=== PATIENT | female | born 1935 | race Caucasian/White ===

== ENCOUNTER → 2020-03-02 08:31 | Outpatient (BNVA) | payer MEDICARE, OTHER, SELFPAY | PROVIDERS: PCP Internal Medicine; Visit Provider Physician Assistant | DX: M17.11 Unilateral primary osteoarthritis, right knee (principal) | CPT/HCPCS: 20610; 99212; J1040 ==

== ENCOUNTER → 2020-09-22 09:09 | Outpatient (BNVA) | payer MEDICARE, OTHER, SELFPAY | PROVIDERS: PCP Internal Medicine; Visit Provider Physician Assistant | DX: M17.2 Bilateral post-traumatic osteoarthritis of knee (principal) | CPT/HCPCS: 20610; 99212; J1040 ==

== ENCOUNTER 2020-09-23 09:02 | Inpatient (IN) | payer MEDICARE, OTHER, SELFPAY ==
[2020-09-23] VITALS (9 sets, daily range): BP systolic 100–148; BP diastolic 48–83; PULSE 54–80; RESP 16–19; TEMP 36.3–36.6; O2SAT 92–96; BMI 26.1
--- NOTE | ~2020-09-23 | XR_ITS ---
EXAMINATION: AP PELVIS AND BILATERAL HIPS. BILATERAL KNEES. CLINICAL INFORMATION: Status post fall with pain COMPARISON: Right hip 04/17/2019 and left knee 03/17/2019. TECHNIQUE: AP pelvis and bilateral hips 5 views. 4 views each hip. FINDINGS: AP pelvis: There is a total right knee prosthesis in satisfactory alignment. The left hip joint space is maintained normal. Is mild loss of right SI joint space. Left facet joint space is normal. No visible fracture or lytic process seen. There is significant symphysis sclerosis. The soft tissues are normal. Right hip: There is a total right hip prosthesis with prosthetic components in satisfactory alignment. There is no loosening seen. No fracture noted. The soft tissues are normal. Left hip: There is loss of left hip joint space without visible acute fracture, dislocation or lytic process. The soft tissues are normal. Right knee: There is severe loss of medial and patellofemoral and moderate lateral compartment joint space with a large superior patellar osteophyte eroding the anterior femoral cortical margin.. There is large soft tissue calcification lateral distal right femur. There is moderate osteophytosis throughout the compartments. Nose loose body seen. No abnormal joint effusion suspected. Left knee: There is severe loss of medial and patellofemoral and moderate lateral compartment joint space. There is moderate suprapatellar enthesophytosis. There are dual large soft tissue calcification superior and lateral to the patella and large enthesophyte of the superior patella eroding anterior distal femoral cortex. There are no loose bodies or joint effusion seen. XR/XR hips KANDY min 3V IMPRESSION: Tricompartment arthritic changes both knees worse in the medial and the peripheral compartment. There are large enthesophytes along the superior patella eroding the anterior distal femoral cortical margin. There is no suprapatellar joint effusion, acute fracture or dislocation. There is soft tissue amorphous calcification superior and lateral to the patella in both knees There is a total right hip prosthesis in satisfactory alignment. Mild right sacroiliitis is noted. The left SI joint left hip joint is normal. Also visualized is mild pubic symphysitis. No acute fracture or dislocation seen involving either hip joint.
--- NOTE | ~2020-09-23 | CT_ITS ---
EXAMINATION: CT BRAIN AND CT CERVICAL SPINE WITHOUT CONTRAST. CLINICAL INFORMATION: Dizziness and fall. COMPARISON: None TECHNIQUE: 5 mm thin axial and reformatted 2 mm thin sagittal and coronal images of brain were obtained. Subsequently axial 3 mm thin and reformatted 2 mm thin sagittal and coronal images of cervical spine were obtained. DLP [id number] FINDINGS: Brain: There is no acute intra-axial, extra-axial bleed, masses or midline shift. There is no acute infarction in evolution. There is no edema. The lateral ventricles are symmetrical in size and configuration without enlargement. Small hypodense areas are seen in the subcortical white matter more prominent than the previous exam likely small old lacunar infarcts. The lateral ventricles are symmetrical but prominent and so other cortical sulci. Bone windows reveal no calvarial abnormality. No scalp soft tissue abnormality seen. Bilateral mastoid air cells and paranasal sinuses are well aerated. Cervical spine: There is maintained cervical lordosis. There is mild levoscoliosis. The vertebral heights and alignment is normal. There is mild loss of C3-C4, C5-C6 and C6-C7 disc heights with moderate posterior and mild ventral spondylosis. The craniovertebral junction and C1-C2 alignment is normal. There is moderate C2-C3, C3-C4, C4-C5 and C5-C6 facet joint arthropathy slightly greater on the right side. The airway is widely patent. The lung apices are clear. The thyroid lobes are symmetrical with bilateral thyroid nodules. The left thyroid nodule is larger with calcification. The prevertebral and paravertebral soft tissues are normal. CT/CT cervical spine wo con IMPRESSION: No acute intracranial process seen. Age-related cerebral atrophy with chronic small vessel microangiopathy. There is lacunar infarct in bilateral centrum semiovale. There is no acute fracture, dislocation or subluxation cervical spine. There are degenerative disc changes and facet joint arthropathy as described above.
--- NOTE | ~2020-09-23 | XR_ITS ---
EXAMINATION: XR CHEST CLINICAL INFORMATION: Dizziness, fall, trauma COMPARISON: Chest radiographs 03/17/2019, 01/31/2019 TECHNIQUE: 2 views of the chest were obtained. FINDINGS: There is no pneumothorax, pleural reaction, airspace consolidation, or effusion. The costophrenic sulci are well-defined. The heart is normal in size. The hilar and mediastinal contours are normal. No visible acute bony abnormality. Again, there are multilevel degenerative changes thoracic spine and bilateral shoulder arthropathy as before. XR/XR chest 2V IMPRESSION: No acute intrathoracic disease.
--- NOTE | 2020-09-23 09:13 | ECG_ITS ---
Test Reason : FALL Blood Pressure : / mmHG Vent. Rate : 080 BPM Atrial Rate : 080 BPM P-R Int : 230 ms QRS Dur : 108 ms QT Int : 410 ms P-R-T Axes : 046 033 038 degrees QTc Int : 472 ms Sinus rhythm with 1st degree A-V block with occasional Premature ventricular complexes Otherwise normal ECG When compared with ECG of 17-MAR-2019 18:54, Premature ventricular complexes are now Present [place] interval has increased T wave inversion no longer evident in Lateral leads Referred By: Hamida Villafuerte Electronically Signed By:DEJUAN MONTOYA
[2020-09-23 09:28] LABS: MANUAL DIFF FLAG NO
[2020-09-23 09:29] LABS: Basophils Percent Auto 0.1 % (0-2); Hematocrit 39.1 % (37-47); Hemoglobin 13.3 g/dl (12.0-16.0); Imm Gran Abs Auto 0.07 X10*3/uL (0.00-0.03); Imm Gran Pct Auto 0.7 % (0.0-0.4); Lymphocytes Percent Auto 10.4 % (20-40); Mean Corpuscular Hemoglobin 31.1 pg (27.0-33.0); Mean Corpuscular Volume 91.4 fL (80-98); Mean Platelet Volume 9.3 fL (9.4-12.3); Monocytes Absolute Auto 0.2 X10*3/uL (0.1-1.2); Monocytes Percent Auto 2.3 % (2-11); Neutrophils Absolute Auto 8.5 X10*3/uL (2.0-8.3); Neutrophils Percent Auto 86.5 % (45-73); Platelet Count 314 X10*3/uL (160-400); Red Blood Count 4.28 X10*6/uL (4.20-5.50); White Blood Count 9.9 X10*3/uL (4.8-10.8)
[2020-09-23 09:34] LABS: Prothrombin Time 11.5 SEC (10.8-13.0)
[2020-09-23] MEDS: Acetaminophen 325 MG TABLET 975 MG PO (09:41)
[2020-09-23] MEDS: 0.9 % Sodium Chloride 1,000 ML 999 ML IVCONT ×2 (09:42→10:52)
[2020-09-23 09:55] LABS: Alanine Aminotransferase 16 U/L (0-31); Albumin Level 4.5 g/dL (3.5-5.0); Alkaline Phosphatase 102 U/L (39-117); Anion Gap 18 (12-20); Aspartate Amino Transferase 17 U/L (5-31); Bilirubin Total 0.9 mg/dL (0.0-1.0); Blood Urea Nitrogen 37 mg/dL (9-16); Carbon Dioxide 32 mmol/L (22-29); Chloride 88 mmol/L (96-108); Creatinine Clr Calc Pharmacy 20.4; Estimated Glomerular Filt Rate 25; Glucose Random 174 mg/dL (60-115); Magnesium 2.5 mg/dL (1.6-2.6); Sodium 135 mmol/L (135-145); Total Protein 7.7 g/dL (6.5-8.0)
[2020-09-23 09:58] LABS: B Type Natriuretic Peptide 66 pg/mL (<100); Troponin-I High Sensitivity 12.1 ng/L (<3.5-17.0)
[2020-09-23 10:03] LABS: Potassium 2.7 mmol/L (3.3-5.1)
[2020-09-23 10:08] LABS: Influenza A PCR NEGATIVE (Negative); Influenza B PCR NEGATIVE (Negative); Resp Syncy Virus RNA Qual PCR NEGATIVE (Negative); SARS COV2 PCR INHOUSE NEGATIVE (Negative)
[2020-09-23 10:12] LABS: TSH reflex Free T4 0.37 uIU/mL (0.32-4.0)
[2020-09-23 10:16] LABS: Glucose Urine UA NEG (NEG); Leukocyte Esterase Urine 1+ (NEG); Nitrite Urine NEG (NEG); Specific Gravity - Urine <= 1.005 (1.005-1.025); UACC Culture Trigger YES; Urine Blood NEG (NEG); Urine Ketones NEG (NEG); Urine Protein NEG (NEG-TRACE)
[2020-09-23 10:17] LABS: Appearance Urine CLEAR; Color Urine YELLOW
[2020-09-23 10:30] LABS: Bacteria Urine 2+ /LPF; RBC Urine 0-2 /HPF (0); Squamous Epithelial Cell Urine 1+ /LPF
--- NOTE | 2020-09-23 11:46 | ED_ITS ---
HPI - Fall General Chief Complaint: Fall Stated Complaint: FALL Time Seen by Provider: 09/23/20 09:03 Source: patient, family and EMS Mode of arrival: EMS Limitations: other History of Present Illness HPI Narrative: 85-year-old female with a past medical history of dementia, hypertension, diastolic dysfunction, fluid retention, lymphedema of both lower extremity, asthma and osteoarthritis presenting to the ED via EMS after she fell out of her bed. She is a poor historian. Reports that she felt dizzy although is very vague if she felt dizzy before the fall although reports she was definitely dizzy after the fall. Reports she hit her head although did not lose consciousness. She was down for approximately 20-30 minutes due to her daughter's could not get her back up. Daughters report that she is at baseline for mentation although appears more generalized weak. No focal weakness. She is complaining of bilateral hip and bilateral knee pain. She denies any fevers, headaches, dizziness at this time, changes in vision, jaw pain, paresthesias, nausea/vomiting, chest pain, shortness of breath, dyspnea on exertion, orthopnea, palpitations, abdominal pain, diarrhea, constipation, dysuria, hematuria or any other symptoms complaints or concerns at this time. Related Data Home Medications Medication Instructions Recorded Confirmed furosemide 80 mg tablet 80 mg PO DAILY 03/02/20 09/23/20 donepezil 10 mg PO BEDTIME 09/23/20 09/23/20 levothyroxine 25 mcg PO DAILY@0600 09/23/20 09/23/20 melatonin 6 mg PO BEDTIME 09/23/20 09/23/20 memantine 5 mg PO BID 09/23/20 09/23/20 potassium chloride 20 meq PO BID 09/23/20 09/23/20 triamterene-hydrochlorothiazid 1.5 tab PO DAILY 09/23/20 09/23/20 vitamin [id number] acid 1 tab SUBLINGUAL 09/23/20 Allergies Allergy/AdvReac Type Severity Reaction Status Date / Time codeine [CODEINE] Allergy Unknown UNKNOWN Unverified 09/22/20 09:55 penicillin G Allergy Unknown unk Verified 09/22/20 09:55 Penicillins [PENICILLINS] Allergy Unknown UNKNOWN Unverified 09/22/20 09:55 Sulfa (Sulfonamide Allergy Unknown UNKNOWN Unverified 09/22/20 09:55 Antibiotics) [SULFA (SULFONAMIDE ANTIBIOTICS)] tetanus and diphtheria Allergy Unknown UNKNOWN Unverified 09/22/20 09:55 toxoids [TETANUS AND DIPHTHERIA TOXOIDS] Sulfa Allergy Unknown unk Uncoded 09/22/20 09:55 TETANUS Allergy Unknown unk Uncoded 09/22/20 09:55 Review of Systems Review of Systems: Constitutional : No changes in activity, No lethargy, No recent prior head injury, No agitation, No increased fussiness ENT/Mouth : No Ear Pain, No Nasal discharge/drainage Eyes: No Eye Pain, No Swelling, No Redness, No Foreign Body, No Vision Changes Cardiovascular : No Chest Pain, No SOB Respiratory : No Cough Gastrointestinal : No Nausea, No Vomiting, No abdominal Pain Genitourinary : No Dysuria, No Urinary Frequency, No Urinary Incontinence, No Urgency, No Flank Pain Musculoskeletal : Positive b/l hip and knee joint pain, No neck stiffness, No back pain/injury Skin : No lacerations Neuro : Positive head injury, Positive dizziness, Positive gen weakness, No Focal Weakness, No unsteady gait, No Paresthesias, No Loss of Consciousness, No altered mental status, No Headache Yes all other systems are reviewed and are negative [facility] Past Medical History Attestation statement: The following information was validated with the patient. Medical History Bilateral post-traumatic osteoarthritis of knee Cataract Fluid retention HTN (hypertension) Lymphedema of both lower extremities Surgical History History of bladder surgery History of hip surgery Status post ablation of incompetent vein using laser Family History Family History Other HTN (hypertension) Social History Social History Advance Directives: Yes Advance Directives Information Provided: Yes Advance Directives on File: No Current occupational status: retired Current occupation: Right Handed Physical Exam Vital Signs: Vital Signs: Last Vital Signs Temp 97.9 F 09/23/20 09:10 Pulse 69 09/23/20 15:03 Resp 18 09/23/20 15:03 BP 133/54 L 09/23/20 15:03 Pulse Ox 94 09/23/20 15:03 Body Mass Index 26.1 Vital signs have been reviewed as normal and appeared to be correct. Blood pressure normal. Heart rate normal. Respiration rate normal. Temperature normal. Oxygen saturation normal. Appearance: Alert. Oriented X3. No acute distress. Head: Normal external exam. Normocephalic. Atraumatic. Able to rotate head bilaterally. Eyes: PERRLA. EOMI. No nystagmus noted. Conjunctiva and sclera normal. Eyelids normal. Corneal reflex normal. ENT: EAC normal. TM's Normal. Hearing normal. Pharynx normal. Uvula midline. tongue midline. Moist mucous membranes. No trismus noted. No drooling noted. No muffled voice noted. No nystagmus noted. Neck: Normal inspection. Neck supple. FROM. No adenopathy. Trachea midline. Thyroid Normal. No meningeal signs. No neck mass noted. CVS: Normal heart rate and rhythm. Heart sound normal. No murmurs noted. Pulses normal throughout. Respiratory: No respiratory distress. Painless inspiration. Breath sounds normal. No wheezes/rales/rhonchi noted. Chest nontender. No accessory muscle usage noted or decreased air movement noted. Abdomen: Soft and nontender. Bowel sounds normal in all 4 quadrants. No distention noted. No organomegaly noted. No visible injury noted. Back: Full range of motion noted. No mid thoracic/lumbar tenderness. No step- offs or deformities noted. Patient is neuro intact bilateral distant all 4 extremities. No rashes/lesions/induration/fluctuance or signs of infection noted. Patient reflexes intact bilateral and distally in all 4 extremities. Skin: Skin warm and dry. Normal skin color. Normal skin turgor. No rashes/lesions/lacerations noted. Extremities: Patient mild tenderness to bilateral hip joints and knees although patient has full range of motion no obvious deformities and no laxity or signs of infection noted. No lower extremity edema. No calf tenderness is noted. Otherwise all other Extremities exhibit normal range of motion and nontender. Able to shrug shoulders bilaterally and keep up against resistance. Neuro: Oriented X 3. No motor deficit. No sensory deficit. Reflexes normal. M oving all extremities. No focal motor deficits. Cranial nerves II-XI intact bilaterally. Facial strength normal. Normal cognition. Speech normal. Gait normal. Strength 5/5 throughout. No pronator drift. No tremor noted. No fasciculations noted. No rigidity noted. Muscle tone normal throughout. No asterixis noted. Zeleum-pu-yctc test normal. Heel to valle test normal. Tandem gait normal. Does not sway with eyes open. Romberg test negative. Rapid alternating movement upper extremity normal. Rapid alternating movement lower extremity normal. Hand drop from overhead Misses face. NIHSS score 0. Course Course Course Narrative: 9:12am - 85-year-old female presenting to the ED via EMS after she fell out of her bed. She is a poor historian. Reports that she felt dizzy although is very vague if she felt dizzy before the fall although reports she was definitely dizzy after the fall. Reports she hit her head although did not lose consciousness. She was down for approximately 20-30 minutes due to her daughter's could not get her back up. Daughters report that she is at baseline for mentation although appears more generalized weak. No focal weakness. She is complaining of bilat eral hip and bilateral knee pain. - On exam patient is alert and oriented x3. Not in any acute distress. No focal neuro deficits are noted. Normal steady gait. NIH SS score is 0 at this time. Patient has non disabling symptoms therefore not a candidate for tPA. Lungs clear to auscultation. CV RRR. Abdomen is soft and nontender. Cervical spine nontender and full range of motion. Thoracic and lumbar spine nontender and full range of motion. Patient with tenderness to palpation to bilateral hips and knee joints although no obvious deformities or laxity or signs of infection noted. Patient has a normal steady gait. Plan: Labs, CT scan of brain/cervical spine, chest x-ray, hips and bilateral knee x-rays, EKG, COVID/RSV/flu swab, straight cath for UA and 975 mg of Tylenol for the patient's pain and re-evaluate. Reevaluation(s) Reevaluation #1: - CT scan of brain/cervical spine revealed chronic changes no a cute processes were noted. - chest x-ray within normal limits no acute processes are noted. - x-rays of bilateral hips and knees revealed chronic changes no acute processes are noted. - labs returned in patient with a potassium of 2.7. BUN and creatinine 37/1.92. Random glucose 174. Troponin elevated at 12.1. Otherwise all other labs are within normal limits. COVID/RSV/flu negative. UA with +1 leukocytes and 10-14 white blood cells this is a straight cath most likely patient has a UTI theref ore will be started on antibiotics. - therefore due to patient appears to have UTI and I am starting on antibiotics will obtain blood cultures and lactic acid although this is not sepsis - will also obtain a repeat troponin at 12:20 and repeat chemistry anticipate to admit for Fall with dizziness/hypokalemia/MEAGHAN/UTI. Patient and family at bedside understand agree with this plan. Time: 11:55 Reevaluation #2: - I discussed with Dr. Gold and he reported that Dr. Vicente and SAMIA Acosta will admit the patient. Time: 14:13 [facility] - Fall Medical Records Attestation: I reviewed the patient's medical records. Lab Data Attestation: I reviewed the patient's lab results. Result diagrams: 09/23/20 09:22 09/23/20 12:36 Labs: Lab Results 09/23/20 09/23/20 09/23/20 Range/Units 09:20 09:22 09:22 WBC 9.9 (4.8-10.8) X10*3/uL RBC 4.28 (4.20-5.50) X10*6/uL Hgb 13.3 (12.0-16.0) g/dl Hct 39.1 (37-47) % MCV 91.4 (80-98) fL MCH 31.1 (27.0-33.0) pg MCHC 34.0 (31.0-35.0) g/dl RDW 13.0 (11.0-16.0) % Plt Count 314 (160-400) X10*3/uL MPV 9.3 L (9.4-12.3) fL Immature Gran % (Auto) 0.7 H (0.0-0.4) % Neut % (Auto) 86.5 H (45-73) % Lymph % (Auto) 10.4 L (20-40) % [place] % (Auto) 2.3 (2-11) % Eos % (Auto) 0.0 (0-4) % Baso % (Auto) 0.1 (0-2) % Lymph # (Auto) 1.0 L (1.2-4.9) X10*3/uL [place] # (Auto) 0.2 (0.1-1.2) X10*3/uL Eos # (Auto) 0.0 (0.0-0.4) X10*3/uL Baso # (Auto) 0.0 (0.0-0.2) X10*3/uL Abs Immat Gran (auto) 0.07 H (0.00-0.03) X10*3/uL Absolute Neuts (auto) 8.5 H (2.0-8.3) X10*3/uL Absolute Nucleated RBC 0.000 (0.0-0.012) X10*3/uL Nucleated RBC % (auto) 0.0 (0.0-0.2) /100WBC PT 11.5 (10.8-13.0) SEC INR 1.0 (0.9-1.1) Sodium (135-145) mmol/L Potassium (3.3-5.1) mmol/L Chloride (96-108) mmol/L Carbon Dioxide (22-29) mmol/L Anion Gap (12-20) BUN (9-16) mg/dL Creatinine (0.5-1.4) mg/dL Estim Creat Clear Calc Estimated GFR Random Glucose (60-115) mg/dL Lactic Acid (0.5-2.0) mmol/L Calcium (8.4-10.2) mg/dL Magnesium (1.6-2.6) mg/dL Total Bilirubin (0.0-1.0) mg/dL AST (5-31) U/L ALT (0-31) U/L Alkaline Phosphatase (39-117) U/L Troponin I High Sens (<3.5-17.0) ng/L B-Natriuretic Peptide (<100) pg/mL Total Protein (6.5-8.0) g/dL Albumin (3.5-5.0) g/dL TSH (0.32-4.0) uIU/mL Urine Color Urine Appearance Urine pH (5.0-8.0) Ur Specific [place] (1.005-1.025) Urine Protein (NEG-TRACE) MG/DL Urine Glucose (UA) (NEG) MG/DL Urine Ketones (NEG) MG/DL Urine Blood (NEG) Urine Nitrite (NEG) Ur Leukocyte Esterase (NEG) Urine RBC (0) /HPF Urine WBC (0-4) /HPF Ur Squamous Epith Cells /LPF Urine Bacteria /LPF Coronavirus (PCR) NEGATIVE (Negative) Influenza Type A (PCR) NEGATIVE (Negative) Influenza Type B (PCR) NEGATIVE (Negative) RSV RNA Qual (PCR) NEGATIVE (Negative) 09/23/20 09/23/20 09/23/20 Range/Units 09:22 09:22 09:22 WBC (4.8-10.8) X10*3/uL RBC (4.20-5.50) X10*6/uL Hgb (12.0-16.0) g/dl Hct (37-47) % MCV (80-98) fL MCH (27.0-33.0) pg MCHC (31.0-35.0) g/dl RDW (11.0-16.0) % Plt Count (160-400) X10*3/uL MPV (9.4-12.3) fL Immature Gran % (Auto) (0.0-0.4) % Neut % (Auto) (45-73) % Lymph % (Auto) (20-40) % [place] % (Auto) (2-11) % Eos % (Auto) (0-4) % Baso % (Auto) (0-2) % Lymph # (Auto) (1.2-4.9) X10*3/uL [place] # (Auto) (0.1-1.2) X10*3/uL Eos # (Auto) (0.0-0.4) X10*3/uL Baso # (Auto) (0.0-0.2) X10*3/uL Abs Immat Gran (auto) (0.00-0.03) X10*3/uL Absolute Neuts (auto) (2.0-8.3) X10*3/uL Absolute Nucleated RBC (0.0-0.012) X10*3/uL Nucleated RBC % (auto) (0.0-0.2) /100WBC PT (10.8-13.0) SEC INR (0.9-1.1) Sodium 135 (135-145) mmol/L Potassium 2.7 L (3.3-5.1) mmol/L Chloride 88 L (96-108) mmol/L Carbon Dioxide 32 H (22-29) mmol/L Anion Gap 18 (12-20) BUN 37 H (9-16) mg/dL Creatinine 1.92 H (0.5-1.4) mg/dL Estim Creat Clear Calc 20.4 Estimated GFR 25 Random Glucose 174 H (60-115) mg/dL Lactic Acid (0.5-2.0) mmol/L Calcium 10.0 (8.4-10.2) mg/dL Magnesium 2.5 (1.6-2.6) mg/dL Total Bilirubin 0.9 (0.0-1.0) mg/dL AST 17 (5-31) U/L ALT 16 (0-31) U/L Alkaline Phosphatase 102 (39-117) U/L Troponin I High Sens 12.1 (<3.5-17.0) ng/L B-Natriuretic Peptide 66 (<100) pg/mL Total Protein 7.7 (6.5-8.0) g/dL Albumin 4.5 (3.5-5.0) g/dL TSH 0.37 (0.32-4.0) uIU/mL Urine Color Urine Appearance Urine pH (5.0-8.0) Ur Specific [place] (1.005-1.025) Urine Protein (NEG-TRACE) MG/DL Urine Glucose (UA) (NEG) MG/DL Urine Ketones (NEG) MG/DL Urine Blood (NEG) Urine Nitrite (NEG) Ur Leukocyte Esterase (NEG) Urine RBC (0) /HPF Urine WBC (0-4) /HPF Ur Squamous Epith Cells /LPF Urine Bacteria /LPF Coronavirus (PCR) (Negative) Influenza Type A (PCR) (Negative) Influenza Type B (PCR) (Negative) RSV RNA Qual (PCR) (Negative) 09/23/20 09/23/20 09/23/20 Range/Units 10:09 12:36 12:36 WBC (4.8-10.8) X10*3/uL RBC (4.20-5.50) X10*6/uL Hgb (12.0-16.0) g/dl Hct (37-47) % MCV (80-98) fL MCH (27.0-33.0) pg MCHC (31.0-35.0) g/dl RDW (11.0-16.0) % Plt Count (160-400) X10*3/uL MPV (9.4-12.3) fL Immature Gran % (Auto) (0.0-0.4) % Neut % (Auto) (45-73) % Lymph % (Auto) (20-40) % [place] % (Auto) (2-11) % Eos % (Auto) (0-4) % Baso % (Auto) (0-2) % Lymph # (Auto) (1.2-4.9) X10*3/uL [place] # (Auto) (0.1-1.2) X10*3/uL Eos # (Auto) (0.0-0.4) X10*3/uL Baso # (Auto) (0.0-0.2) X10*3/uL Abs Immat Gran (auto) (0.00-0.03) X10*3/uL Absolute Neuts (auto) (2.0-8.3) X10*3/uL Absolute Nucleated RBC (0.0-0.012) X10*3/uL Nucleated RBC % (auto) (0.0-0.2) /100WBC PT (10.8-13.0) SEC INR (0.9-1.1) Sodium 138 (135-145) mmol/L Potassium 2.7 L (3.3-5.1) mmol/L Chloride 97 (96-108) mmol/L Carbon Dioxide 30 H (22-29) mmol/L Anion Gap 14 (12-20) BUN 34 H (9-16) mg/dL Creatinine 1.50 H (0.5-1.4) mg/dL Estim Creat Clear Calc 26.1 Estimated GFR 33 Random Glucose 152 H (60-115) mg/dL Lactic Acid 1.3 (0.5-2.0) mmol/L Calcium 8.6 D (8.4-10.2) mg/dL Magnesium (1.6-2.6) mg/dL Total Bilirubin (0.0-1.0) mg/dL AST (5-31) U/L ALT (0-31) U/L Alkaline Phosphatase (39-117) U/L Troponin I High Sens (<3.5-17.0) ng/L B-Natriuretic Peptide (<100) pg/mL Total Protein (6.5-8.0) g/dL Albumin (3.5-5.0) g/dL TSH (0.32-4.0) uIU/mL Urine Color YELLOW Urine Appearance CLEAR Urine pH 6.0 (5.0-8.0) Ur Specific [place] <= 1.005 (1.005-1.025) Urine Protein NEG (NEG-TRACE) MG/DL Urine Glucose (UA) NEG (NEG) MG/DL Urine Ketones NEG (NEG) MG/DL Urine Blood NEG (NEG) Urine Nitrite NEG (NEG) Ur Leukocyte Esterase 1+ H (NEG) Urine RBC 0-2 (0) /HPF Urine WBC 10-14 H (0-4) /HPF Ur Squamous Epith Cells 1+ /LPF Urine Bacteria 2+ /LPF Coronavirus (PCR) (Negative) Influenza Type A (PCR) (Negative) Influenza Type B (PCR) (Negative) RSV RNA Qual (PCR) (Negative) 09/23/20 Range/Units 12:36 WBC (4.8-10.8) X10*3/uL RBC (4.20-5.50) X10*6/uL Hgb (12.0-16.0) g/dl Hct (37-47) % MCV (80-98) fL MCH (27.0-33.0) pg MCHC (31.0-35.0) g/dl RDW (11.0-16.0) % Plt Count (160-400) X10*3/uL MPV (9.4-12.3) fL Immature Gran % (Auto) (0.0-0.4) % Neut % (Auto) (45-73) % Lymph % (Auto) (20-40) % [place] % (Auto) (2-11) % Eos % (Auto) (0-4) % Baso % (Auto) (0-2) % Lymph # (Auto) (1.2-4.9) X10*3/uL [place] # (Auto) (0.1-1.2) X10*3/uL Eos # (Auto) (0.0-0.4) X10*3/uL Baso # (Auto) (0.0-0.2) X10*3/uL Abs Immat Gran (auto) (0.00-0.03) X10*3/uL Absolute Neuts (auto) (2.0-8.3) X10*3/uL Absolute Nucleated RBC (0.0-0.012) X10*3/uL Nucleated RBC % (auto) (0.0-0.2) /100WBC PT (10.8-13.0) SEC INR (0.9-1.1) Sodium (135-145) mmol/L Potassium (3.3-5.1) mmol/L Chloride (96-108) mmol/L Carbon Dioxide (22-29) mmol/L Anion Gap (12-20) BUN (9-16) mg/dL Creatinine (0.5-1.4) mg/dL Estim Creat Clear Calc Estimated GFR Random Glucose (60-115) mg/dL Lactic Acid (0.5-2.0) mmol/L Calcium (8.4-10.2) mg/dL Magnesium (1.6-2.6) mg/dL Total Bilirubin (0.0-1.0) mg/dL AST (5-31) U/L ALT (0-31) U/L Alkaline Phosphatase (39-117) U/L Troponin I High Sens 11.3 (<3.5-17.0) ng/L B-Natriuretic Peptide (<100) pg/mL Total Protein (6.5-8.0) g/dL Albumin (3.5-5.0) g/dL TSH (0.32-4.0) uIU/mL Urine Color Urine Appearance Urine pH (5.0-8.0) Ur Specific [place] (1.005-1.025) Urine Protein (NEG-TRACE) MG/DL Urine Glucose (UA) (NEG) MG/DL Urine Ketones (NEG) MG/DL Urine Blood (NEG) Urine Nitrite (NEG) Ur Leukocyte Esterase (NEG) Urine RBC (0) /HPF Urine WBC (0-4) /HPF Ur Squamous Epith Cells /LPF Urine Bacteria /LPF Coronavirus (PCR) (Negative) Influenza Type A (PCR) (Negative) Influenza Type B (PCR) (Negative) RSV RNA Qual (PCR) (Negative) ECG Data Attestation: I personally reviewed and interpreted this ECG as follows: ECG interpretation date: 09/23/20 ECG interpretation time: 09:23 Interpretation: Sinus rhythm with first-degree AV block were occasional premature ventricular complexes no acute ischemic changes are noted. Patient's EKG on 03/17/2019 she did not have first-degree AV block although no acute ischemic changes are noted today. Critical Care Time Critical Care Time Critical Care Time: Yes Total Critical Care Time: 60 Attestation: I personally attest to this time spent taking care of the patient Discharge Plan Discharge Clinical Impression: Fall, Dizziness, Acute hypokalemia, MEAGHAN (acute kidney injury), UTI (urinary tract infection) Patient Disposition: Admitted As Inpatient
--- NOTE | 2020-09-23 12:13 | HE.PHANOTE ---
MED REC COMPLETE, NO ISSUES
[2020-09-23 13:02] LABS: Lactic Acid 1.3 mmol/L (0.5-2.0)
[2020-09-23 13:08] LABS: Carbon Dioxide 30 mmol/L (22-29)
[2020-09-23 13:10] LABS: Anion Gap 14 (12-20); Blood Urea Nitrogen 34 mg/dL (9-16); Chloride 97 mmol/L (96-108); Creatinine Clr Calc Pharmacy 26.1; Estimated Glomerular Filt Rate 33; Glucose Random 152 mg/dL (60-115); Sodium 138 mmol/L (135-145)
[2020-09-23] MEDS: cefTRIAXone sodium 2 GM in 0.9 % Sodium Chloride 50 ML IV (13:10)
[2020-09-23 13:11] LABS: Troponin-I High Sensitivity 11.3 ng/L (<3.5-17.0)
[2020-09-23 13:17] LABS: Calcium 8.6 mg/dL (8.4-10.2); Potassium 2.7 mmol/L (3.3-5.1)
--- NOTE | 2020-09-23 15:01 | P.EN_ITS ---
Event Note Date of Service: 09/24/20 Event Note: Patient seen and examined-patient is having some dizziness and hav ing poor appetite from few days-found to have MEAGHAN, hypokalemia and question of UTI on admission. She said she fall in the sleep, and as soon as she fell she woke up. No syncope Lab imaging and EKG reviewed. Patient has hypokalemia, MEAGHAN. Physical exam: heent: neck pain butable to move , no vissible deformity Cvs: rrr, [id number] , no murmur res: clear to auscultation ,no rhonchii or wheezing abd: no rebound or guarding ,nt, bs present. ext pulses present , no cyanosis neuro: axo3 , nonfocal. Assessment and plan coodinated in apc's note in addition: Will start her on hydration, aggressive electrolyte replacement, admitted tele, add antibiotic until urine culture comes back preferably treat for UTI since has these issues on and off. Hold any nephrotoxic medications. If renal function worsens then we will add nephrology evaluation.
[2020-09-23] MEDS: Potassium Chloride Packet 20 MEQ PACKET 40 MEQ PO (15:05)
[2020-09-23] MEDS: Butalb/Acetamin/Caff 50/325/40 TABLET 2 TAB PO (15:05)
--- NOTE | 2020-09-23 15:06 | P.HPHOSP_ITS ---
History of Present Illness Date of Service: 09/23/20 Chief Complaint: Fall This is an 85-year-old female who presented to the emergency department after a fall. Patient states that she fell out of bed overnight. She hit her head during her fall. She currently reports pain in her head and neck. Workup including brain CT and cervical spine CT changes. Her workup was significant for MEAGHAN, was 1.92 which improved to 1.50 with hydration. Her potassium was low at 2.7 and she received both IV and p.o. supplementation. Her urinalysis was questionable for UTI and she was started on empiric antibiotics. She reports chronic issues with urinary frequency and urgency. She has history of bladder sling surgery. She denies any dysuria, hematuria or any change in her urinary habits. She denies abdominal pain or associated nausea, vomiting, diarrhea, fever, chills. Her daughter reports decrease in p.o. intake over the past couple of days. Review of Systems Review of Systems: Yes all other systems are reviewed and are negative Constitutional: Constitutional: Denies chills and Denies fever(s) Cardiovascular: Cardiovascular: Denies chest pain Respiratory: Respiratory: Denies cough Gastrointestinal: Gastrointestinal: Denies abdominal pain [facility] Medical History Bilateral post-traumatic osteoarthritis of knee Cataract Fluid retention HTN (hypertension) Lymphedema of both lower extremities Family History Other HTN (hypertension) Family history: reviewed and not pertinent Surgical History History of bladder surgery History of hip surgery Status post ablation of incompetent vein using laser Social History Advance Directives: Yes Advance Directives Information Provided: Yes Advance Directives on File: No Current occupational status: retired Current occupation: Right [employer]ed Meds Allergies Allergy/AdvReac Type Severity Reaction Status Date / Time codeine [CODEINE] Allergy Unknown UNKNOWN Unverified 09/22/20 09:55 penicillin G Allergy Unknown unk Verified 09/22/20 09:55 Penicillins [PENICILLINS] Allergy Unknown UNKNOWN Unverified 09/22/20 09:55 Sulfa (Sulfonamide Allergy Unknown UNKNOWN Unverified 09/22/20 09:55 Antibiotics) [SULFA (SULFONAMIDE ANTIBIOTICS)] tetanus and diphtheria Allergy Unknown UNKNOWN Unverified 09/22/20 09:55 toxoids [TETANUS AND DIPHTHERIA TOXOIDS] Sulfa Allergy Unknown unk Uncoded 09/22/20 09:55 TETANUS Allergy Unknown unk Uncoded 09/22/20 09:55 Active Medications: Current Medications Generic Name Dose Route Start Last Admin Trade Name Freq PRN Reason Stop Dose Admin Potassium Chloride/Sodium Chloride 20 meq in 1,000 mls @ 80 mls/hr 09/23/20 13:59 IVCONT 09/24/20 02:28 .[id number] Pharmacy Consult 1 each 09/23/20 11:51 Consult Rx Perform Med Rec MISCELLANE ONCE PRN Consult order Home Medications Medication Instructions Recorded Confirmed Last Taken Type furosemide 80 mg tablet 80 mg PO DAILY 03/02/20 09/23/20 09/22/20 History donepezil 10 mg PO BEDTIME 09/23/20 09/23/20 09/22/20 History levothyroxine 25 mcg PO DAILY@0600 09/23/20 09/23/20 09/22/20 History melatonin 6 mg PO BEDTIME 09/23/20 09/23/20 09/22/20 History memantine 5 mg PO BID 09/23/20 09/23/20 09/22/20 History potassium chloride 20 meq PO BID 09/23/20 09/23/20 09/22/20 History triamterene-hydrochlorothiazid 1.5 tab PO DAILY 09/23/20 09/23/20 09/22/20 History vitamin [id number] acid 1 tab SUBLINGUAL 09/23/20 09/22/20 History Physical Exam Vital Signs and Narrative: Vital Signs: Last Vital Signs Temp 97.9 F 09/23/20 09:10 Pulse 69 09/23/20 15:03 Resp 18 09/23/20 15:03 BP 133/54 L 09/23/20 15:03 Pulse Ox 94 09/23/20 15:03 Body Mass Index 26.1 Const: Nutritional Appearance: well nourished HENMT: Head: Yes normocephalic and Yes atraumatic Eyes: Sclerae: sclerae normal Chest: Chest palpation & inspection: normal inspection of the chest Resp: Effort & Inspection: normal respiratory effort and no respiratory distress Auscultation: clear to auscultation bilaterally Cardio: Rate: regular rate Rhythm: regular rhythm GI: Palpation (GI): Soft to palpation and nontender Neuro: Cranial nerves: Yes CN's II-XII intact bilaterally and Yes Bilaterally intact EOM present Extrem: Other: no leg edema Results Labs CBC and Chem 7: 09/23/20 09:22 09/23/20 12:36 Labs: Laboratory Results - last 24 hr 09/23/20 09/23/20 09/23/20 09:20 09:22 09:22 MCV 91.4 MCH 31.1 MCHC 34.0 RDW 13.0 Plt Count 314 MPV 9.3 L Immature Gran % (Auto) 0.7 H Neut % (Auto) 86.5 H Lymph % (Auto) 10.4 L [place] % (Auto) 2.3 Eos % (Auto) 0.0 Baso % (Auto) 0.1 Lymph # (Auto) 1.0 L [place] # (Auto) 0.2 Eos # (Auto) 0.0 Baso # (Auto) 0.0 Abs Immat Gran (auto) 0.07 H Absolute Neuts (auto) 8.5 H Absolute Nucleated RBC 0.000 Nucleated RBC % (auto) 0.0 PT 11.5 INR 1.0 Anion Gap Estim Creat Clear Calc Estimated GFR Random Glucose Lactic Acid Calcium Magnesium Total Bilirubin AST ALT Alkaline Phosphatase Troponin I High Sens B-Natriuretic Peptide Total Protein Albumin TSH Urine Color Urine Appearance Urine pH Ur Specific Freedom Urine Protein Urine Glucose (UA) Urine Ketones Urine Blood Urine Nitrite Ur Leukocyte Esterase Urine RBC Urine WBC Ur Squamous Epith Cells Urine Bacteria Coronavirus (PCR) NEGATIVE Influenza Type A (PCR) NEGATIVE Influenza Type B (PCR) NEGATIVE RSV RNA Qual (PCR) NEGATIVE 09/23/20 09/23/20 09/23/20 09:22 09:22 09:22 MCV MCH MCHC RDW Plt Count MPV Immature Gran % (Auto) Neut % (Auto) Lymph % (Auto) [place] % (Auto) Eos % (Auto) Baso % (Auto) Lymph # (Auto) [place] # (Auto) Eos # (Auto) Baso # (Auto) Abs Immat Gran (auto) Absolute Neuts (auto) Absolute Nucleated RBC Nucleated RBC % (auto) PT INR Anion Gap 18 Estim Creat Clear Calc 20.4 Estimated GFR 25 Random Glucose 174 H Lactic Acid Calcium 10.0 Magnesium 2.5 Total Bilirubin 0.9 AST 17 ALT 16 Alkaline Phosphatase 102 Troponin I High Sens 12.1 B-Natriuretic Peptide 66 Total Protein 7.7 Albumin 4.5 TSH 0.37 Urine Color Urine Appearance Urine pH Ur Specific Freedom Urine Protein Urine Glucose (UA) Urine Ketones Urine Blood Urine Nitrite Ur Leukocyte Esterase Urine RBC Urine WBC Ur Squamous Epith Cells Urine Bacteria Coronavirus (PCR) Influenza Type A (PCR) Influenza Type B (PCR) RSV RNA Qual (PCR) 09/23/20 09/23/20 09/23/20 10:09 12:36 12:36 MCV MCH MCHC RDW Plt Count MPV Immature Gran % (Auto) Neut % (Auto) Lymph % (Auto) [place] % (Auto) Eos % (Auto) Baso % (Auto) Lymph # (Auto) [place] # (Auto) Eos # (Auto) Baso # (Auto) Abs Immat Gran (auto) Absolute Neuts (auto) Absolute Nucleated RBC Nucleated RBC % (auto) PT INR Anion Gap 14 Estim Creat Clear Calc 26.1 Estimated GFR 33 Random Glucose 152 H Lactic Acid 1.3 Calcium 8.6 D Magnesium Total Bilirubin AST ALT Alkaline Phosphatase Troponin I High Sens B-Natriuretic Peptide Total Protein Albumin TSH Urine Color YELLOW Urine Appearance CLEAR Urine pH 6.0 Ur Specific Freedom <= 1.005 Urine Protein NEG Urine Glucose (UA) NEG Urine Ketones NEG Urine Blood NEG Urine Nitrite NEG Ur Leukocyte Esterase 1+ H Urine RBC 0-2 Urine WBC 10-14 H Ur Squamous Epith Cells 1+ Urine Bacteria 2+ Coronavirus (PCR) Influenza Type A (PCR) Influenza Type B (PCR) RSV RNA Qual (PCR) 09/23/20 12:36 MCV MCH MCHC RDW Plt Count MPV Immature Gran % (Auto) Neut % (Auto) Lymph % (Auto) [place] % (Auto) Eos % (Auto) Baso % (Auto) Lymph # (Auto) [place] # (Auto) Eos # (Auto) Baso # (Auto) Abs Immat Gran (auto) Absolute Neuts (auto) Absolute Nucleated RBC Nucleated RBC % (auto) PT INR Anion Gap Estim Creat Clear Calc Estimated GFR Random Glucose Lactic Acid Calcium Magnesium Total Bilirubin AST ALT Alkaline Phosphatase Troponin I High Sens 11.3 B-Natriuretic Peptide Total Protein Albumin TSH Urine Color Urine Appearance Urine pH Ur Specific Freedom Urine Protein Urine Glucose (UA) Urine Ketones Urine Blood Urine Nitrite Ur Leukocyte Esterase Urine RBC Urine WBC Ur Squamous Epith Cells Urine Bacteria Coronavirus (PCR) Influenza Type A (PCR) Influenza Type B (PCR) RSV RNA Qual (PCR) Imaging Radiologist's Impressions: Impressions Cervical Spine CT 09/23/20 09:13 IMPRESSION: No acute intracranial process seen. Age-related cerebral atrophy with chronic small vessel microangiopathy. There is lacunar infarct in bilateral centrum semiovale. There is no acute fracture, dislocation or subluxation cervical spine. There are degenerative disc changes and facet joint arthropathy as described above. Chest X-Ray 09/23/20 09:13 IMPRESSION: No acute intrathoracic disease. Head CT 09/23/20 09:13 IMPRESSION: No acute intracranial process seen. Age-related cerebral atrophy with chronic small vessel microangiopathy. There is lacunar infarct in bilateral centrum semiovale. There is no acute fracture, dislocation or subluxation cervical spine. There are degenerative disc changes and facet joint arthropathy as described above. Hip X-Ray 09/23/20 10:19 IMPRESSION: Tricompartment arthritic changes both knees worse in the medial and the peripheral compartment. There are large enthesophytes along the superior patella eroding the anterior distal femoral cortical margin. There is no suprapatellar joint effusion, acute fracture or dislocation. There is soft tissue amorphous calcification superior and lateral to the patella in both knees There is a total right hip prosthesis in satisfactory alignment. Mild right sacroiliitis is noted. The left SI joint left hip joint is normal. Also visualized is mild pubic symphysitis. No acute fracture or dislocation seen involving either hip joint. Knee X-Ray 09/23/20 10:19 IMPRESSION: Tricompartment arthritic changes both knees worse in the medial and the peripheral compartment. There are large enthesophytes along the superior patella eroding the anterior distal femoral cortical margin. There is no suprapatellar joint effusion, acute fracture or dislocation. There is soft tissue amorphous calcification superior and lateral to the patella in both knees There is a total right hip prosthesis in satisfactory alignment. Mild right sacroiliitis is noted. The left SI joint left hip joint is normal. Also visualized is mild pubic symphysitis. No acute fracture or dislocation seen involving either hip joint. Knee X-Ray 09/23/20 10:19 IMPRESSION: Tricompartment arthritic changes both knees worse in the medial and the peripheral compartment. There are large enthesophytes along the superior patella eroding the anterior distal femoral cortical margin. There is no suprapatellar joint effusion, acute fracture or dislocation. There is soft tissue amorphous calcification superior and lateral to the patella in both knees There is a total right hip prosthesis in satisfactory alignment. Mild right sacroiliitis is noted. The left SI joint left hip joint is normal. Also visualized is mild pubic symphysitis. No acute fracture or dislocation seen involving either hip joint. Assessment and Plan (1) MEAGHAN (acute kidney injury): Status: Acute (2) Acute hypokalemia: Status: Acute This is an 85-year-old female with a history of hypertension, dementia who presents the emergency department after falling at bed found to have UTI, hypokalemia, MEAGHAN MEAGHAN Initial creatinine 1.92, improved to 1.5 with hydration No recent baseline. Creatinine from March 2019 was 1.4 -follow renal function -continue gentle IV fluids -hold triamterene/hydrochlorothiazide Hypokalemia Likely due to diuretic use -tele monitoring -replace and follow Urinary tract infection Chronic urinary frequency and urgency -continue empiric ceftriaxone -follow-up urine culture Dementia -continue Namenda, Aricept Hypothyroidism -continue levothyroxine dvt ppx - heparin code status - full code HCP - daughter Jerri Attending - Dr. Vicente Quality Stroke Does the patient have a stroke diagnosis?: No VTE Prior VTE?: No VTE Risk Level:: Medical - moderate - high VTE Device Contraindication: Treatment Not Indicated VTE Drug Contraindication: N/A - Med Ordered
[2020-09-23] MEDS: Heparin Sodium,Porcine 5,000 UNIT/ML VIAL 5000 UNIT SUBCUT (15:55)
[2020-09-23] MEDS: Lidocaine 4 % Patch ADH..PATCH 1 PATCH TRANSDERMA (15:56)
[2020-09-23] MEDS: Lactated Ringers 1,000 ML 80 ML IVCONT (15:56)
[2020-09-23] MEDS: Donepezil HCl 10 MG TABLET PO (21:03)
[2020-09-23] MEDS: Memantine HCl 5 MG TABLET PO (21:03)
[2020-09-23] MEDS: Melatonin 3 MG TABLET 6 MG PO (21:03)
[2020-09-23] MEDS: 0.9 % Sodium Chloride Flush 3 ML SYRINGE IVFLUSH (21:05)
[2020-09-24] VITALS (10 sets, daily range): BP systolic 101–133; BP diastolic 46–61; PULSE 40–72; RESP 18–20; TEMP 36.4–36.8; O2SAT 92–94
[2020-09-24] MEDS: Lactated Ringers 1,000 ML 80 ML IVCONT ×2 (03:05→16:15)
[2020-09-24] MEDS: Heparin Sodium,Porcine 5,000 UNIT/ML VIAL 5000 UNIT SUBCUT ×2 (03:05→16:15)
[2020-09-24] MEDS: Levothyroxine Sodium 25 MCG TABLET PO (05:57)
[2020-09-24 07:25] LABS: Anion Gap 13 (12-20); Blood Urea Nitrogen 25 mg/dL (9-16); Calcium 8.5 mg/dL (8.4-10.2); Carbon Dioxide 28 mmol/L (22-29); Chloride 102 mmol/L (96-108); Creatinine Clr Calc Pharmacy 38.1; Estimated Glomerular Filt Rate 51; Glucose Random 106 mg/dL (60-115); Potassium 2.9 mmol/L (3.3-5.1); Sodium 140 mmol/L (135-145)
[2020-09-24] MEDS: Memantine HCl 5 MG TABLET PO ×2 (08:25→21:24)
[2020-09-24] MEDS: Lidocaine 4 % Patch ADH..PATCH 1 PATCH TRANSDERMA (08:25)
[2020-09-24] MEDS: Potassium Chloride Packet 20 MEQ PACKET 40 MEQ PO ×2 (08:26→12:21)
[2020-09-24] MEDS: 0.9 % Sodium Chloride Flush 3 ML SYRINGE IVFLUSH ×3 (08:26→21:29)
--- NOTE | 2020-09-24 11:24 | MHC.CM.PN ---
met with pt and her dgter chon with whom she lives pt had no servceis prior to admission it is not expected that pt will need servcweis when dcd
--- NOTE | 2020-09-24 11:52 | P.PNIM_ITS ---
Subjective Subjective Date of Service: 09/24/20 Interval History: Seen and examined in follow-up for MEAGHAN, UTI. she is observed sitting up in the chair. Had large amount of diarrhea this morning. Denies abdominal pain, vomiting. Denies dizziness, palpitations, shortness of breath, chest pain Review of Systems Review of Systems: Yes all other systems are reviewed and are negative Constitutional Constitutional: Denies chills and Denies fever(s) Cardiovascular Cardiovascular: Denies chest pain Respiratory Respiratory: Denies cough Gastrointestinal Gastrointestinal: Denies abdominal pain Physical Exam Vital Signs: Vital Signs: Last Vital Signs Temp 97.5 F 09/24/20 11:39 Pulse 51 09/24/20 11:39 Resp 18 09/24/20 11:39 BP 101/52 L 09/24/20 11:39 Pulse Ox 93 09/24/20 11:39 Body Mass Index 26.1 Const: General: alert and awake Nutritional Appearance: well nourished HENMT: Head: Yes normocephalic and Yes atraumatic Eyes: Sclerae: sclerae normal Chest: Chest palpation & inspection: normal inspection of the chest Resp: Effort & Inspection: normal respiratory effort and no respiratory dist ress Cardio: Rate: regular rate Rhythm: regular rhythm GI: Palpation (GI): Soft to palpation and nontender Neuro: Cranial nerves: Yes CN's II-XII intact bilaterally and Yes Bilaterally intact EOM present Objective Data Current Medications Generic Name Dose Route Start Last Admin Trade Name Freq PRN Reason Stop Dose Admin Acetaminophen 650 mg 09/23/20 15:42 Acetaminophen 325 Mg Tablet PO Q6H PRN Pain, Mild (Pain Scale 1-3) Docusate Sodium 100 mg 09/23/20 15:42 Docusate Sodium 100 Mg Capsule PO DAILY PRN Constipation Donepezil HCl 10 mg 09/23/20 21:00 09/23/20 21:03 Donepezil Hcl 10 Mg Tablet PO 10 mg BEDTIME SIENNA Administration Heparin Sodium (Porcine) 5,000 unit 09/23/20 16:00 09/24/20 03:05 Heparin Sodium,Porcine 5,000 Unit/Ml Vial SUBCUT 5,000 unit Q12H SIENNA Administration Ceftriaxone Sodium 1 gm/ 50 mls @ 100 mls/hr 09/24/20 15:15 Sodium Chloride IV Q24H SIENNA Lactated Ringer's 1,000 mls @ 80 mls/hr 09/23/20 15:42 09/24/20 03:05 Lr IVCONT 80 mls/hr .[id number] SIENNA Administration Levothyroxine Sodium 25 mcg 09/24/20 06:00 09/24/20 05:57 Levothyroxine Sodium 25 Mcg Tablet PO 25 mcg DAILY@0600 SIENNA Administration Lidocaine 1 patch 09/23/20 15:20 09/24/20 08:25 Lidocaine 4 % Patch Adh..Patch TRANSDERMA 1 patch DAILY SIENNA Administration Protocol Melatonin 6 mg 09/23/20 21:00 09/23/20 21:03 Melatonin 3 Mg Tablet PO 6 mg BEDTIME SIENNA Administration Memantine 5 mg 09/23/20 21:00 09/24/20 08:25 Memantine Hcl 5 Mg Tablet PO 5 mg BID SIENNA Administration Ondansetron HCl 4 mg 09/23/20 15:42 Ondansetron Hcl 4 Mg/2 Ml Vial IVPUSH Q8H PRN Nausea and Vomiting Pharmacy Consult 1 each 09/23/20 11:51 Consult Rx Perform Med Rec MISCELLANE ONCE PRN Consult order Sodium Chloride 3 ml 09/23/20 16:00 09/24/20 08:26 0.9 % Sodium Chloride Flush 3 Ml Syringe IVFLUSH 3 ml QSHIFT [facility] Administration Labs CBC & Chem 7: 09/23/20 09:22 09/24/20 05:38 Labs: Laboratory Results - last 24 hr 09/23/20 09/23/20 09/23/20 12:36 12:36 12:36 Sodium 138 Potassium 2.7 L Chloride 97 Carbon Dioxide 30 H Anion Gap 14 BUN 34 H Creatinine 1.50 H Estim Creat Clear Calc 26.1 Estimated GFR 33 Random Glucose 152 H Lactic Acid 1.3 Calcium 8.6 D Troponin I High Sens 11.3 09/24/20 05:38 Sodium 140 Potassium 2.9 L Chloride 102 Carbon Dioxide 28 Anion Gap 13 BUN 25 H Creatinine 1.03 Estim Creat Clear Calc 38.1 Estimated GFR 51 Random Glucose 106 Lactic Acid Calcium 8.5 Troponin I High Sens Microbiology Microbiology Results: Microbiology 09/23/20 Unknown Urine Culture - Preliminary Urine Catheterized - Straight Catheter Streptococcus species Quality Stroke Does the patient have a stroke diagnosis?: No VTE Prior VTE?: No VTE Risk Level:: Medical - moderate - high VTE Device Contraindication: Treatment Not Indicated VTE Drug Contraindication: N/A - Med Ordered Assessment and Plan (1) Acute hypokalemia: Status: Acute (2) MEAGHAN (acute kidney injury): Status: Acute (3) UTI (urinary tract infection): Status: Acute Assessment and Plan: This is an 85-year-old female with a history of hypertension, dementia who presents the emergency department after falling at bed found to have UTI, hypokalemia, MEAGHAN Hypokalemia. K still low Likely due to diuretic use mag 2.5 on admission -replace and follow Urinary tract infection Chronic urinary frequency and urgency preliminary urine culture growing stretococcus species -continue empiric ceftriaxone -follow-up fiinal urine culture sensitivities MEAGHAN creatinine improved from 1.92 to 1.03 -continue gentle IV fluids -hold triamterene/hydrochlorothiazide Diarrhea 1 episode if further episodes will consider still studies Dementia -continue Namenda, Aricept Hypothyroidism -continue levothyroxine dvt ppx - heparin code status - full code HCP - daughter Jerri Attending - Dr. Harmon
[2020-09-24] MEDS: cefTRIAXone sodium 1 GM in 0.9 % Sodium Chloride 50 ML IV (16:13)
[2020-09-24] MEDS: Donepezil HCl 10 MG TABLET PO (21:24)
[2020-09-24] MEDS: Melatonin 3 MG TABLET 6 MG PO (21:29)
[2020-09-25 04:00] VITALS: BP 148/64; PULSE 68; RESP 20; TEMP 36.9; O2SAT 98
[2020-09-25] MEDS: Heparin Sodium,Porcine 5,000 UNIT/ML VIAL 5000 UNIT SUBCUT (05:12)
[2020-09-25] MEDS: Levothyroxine Sodium 25 MCG TABLET PO (05:13)
[2020-09-25] MEDS: Lactated Ringers 1,000 ML 80 ML IVCONT (05:13)
[2020-09-25 06:14] LABS: Anion Gap 8 (12-20); Blood Urea Nitrogen 18 mg/dL (9-16); Calcium 8.6 mg/dL (8.4-10.2); Carbon Dioxide 30 mmol/L (22-29); Chloride 106 mmol/L (96-108); Creatinine Clr Calc Pharmacy 46.1; Estimated Glomerular Filt Rate > 60; Glucose Random 105 mg/dL (60-115); Potassium 3.3 mmol/L (3.3-5.1); Sodium 141 mmol/L (135-145)
[2020-09-25 07:17] VITALS: BP 159/73; PULSE 68; RESP 18; TEMP 36.6; O2SAT 95
[2020-09-25] MEDS: Lidocaine 4 % Patch ADH..PATCH 1 PATCH TRANSDERMA (08:07)
[2020-09-25] MEDS: 0.9 % Sodium Chloride Flush 3 ML SYRINGE IVFLUSH (08:08)
[2020-09-25] MEDS: Memantine HCl 5 MG TABLET PO (08:08)
--- NOTE | 2020-09-25 08:59 | P.DS_ITS ---
DS: Providers Provider Date of Service: 09/25/20 <SHIN Perdue - Last Filed: 09/25/20 09:06> Date of admission: 09/23/20 15:06 <SHIN Perdue - Last Filed: 09/25/20 09:06> Primary care physician: Unknown Physician <SHIN Perdue - Last Filed: 09/25/20 09:06> DS: Diagnosis Discharge Diagnosis (1) Acute hypokalemia: Status: Acute <SHIN Perdue Last Filed: 09/25/20 09:06> (2) MEAGHAN (acute kidney injury): Status: Acute <SHIN Perdue Last Filed: 09/25/20 09:06> (3) UTI (urinary tract infection): Status: Acute <SHIN Perdue Last Filed: 09/25/20 09:06> DS: Medications Discharge Medications Home Medications: Home Medications Medication Instructions Recorded Confirmed donepezil 10 mg PO BEDTIME 09/23/20 09/23/20 levothyroxine 25 mcg PO DAILY@0600 09/23/20 09/23/20 melatonin 6 mg PO BEDTIME 09/23/20 09/23/20 memantine 5 mg PO BID 09/23/20 09/23/20 potassium chloride 20 meq PO BID 09/23/20 09/23/20 triamterene-hydrochlorothiazid 1.5 tab PO DAILY 09/23/20 09/23/20 vitamin [id number] acid 1 tab SUBLINGUAL 09/23/20 Previous Rx's Medication Instructions Recorded furosemide [Lasix] 40 mg PO DAILY 30 Days #15 tab 09/25/20 levofloxacin 250 mg PO Q24H 3 Days #3 tab 09/25/20 <SHIN Perdue - Last Filed: 09/25/20 09:06> DS: Summary Hospital Course Hospital Course: From H&P on day of discharge This is an 85-year-old female who presented to the emergency department after a fall. Patient states that she fell out of bed overnight. She hit her head during her fall. She currently reports pain in her head and neck. Workup including brain CT and cervical spine CT with no acute changes. Her workup was significant for MEAGHAN, creatiniine was 1.92 which improved to 1.50 with hydration. Her potassium was low at 2.7 and she received both IV and p.o. supplementation. Her urinalysis was questionable for UTI and she was started on empiric antibiotics. She reports chronic issues with urinary frequency and urgency. She has history of bladder sling surgery. She denies any dysuria, hematuria or any change in her urinary habits. She denies abdominal pain or associated nausea, vomiting, diarrhea, fever, chills. Her daughter reports decrease in p.o. intake over the past couple of days. MEAGHAN Initial creatinine 1.92, improved to 0.85 with IVF and holding diuretics. Likely related to decreased p.o. intake in combination with diuretic use. Will decrease dose of Lasix on discharge. Triamterene/hydrochlorothiazide will be continued. She should call to schedule follow-up appointment with her PCP. Hypokalemia Likely due to diuretic use. Replaced and improved. Continue home potassium supplementation. Urinary tract infection. Daughter reports chronic urinary frequency and urgency. There was no evidence of sepsis. Urine culture grew Enterococcus faecium sensitive to ampicillin however given patient's penicillin allergy she will be discharged home with levofloxacin to complete her her course of antibiotics. Blood cultures remained negative. <SHIN Perdue - Last Filed: 09/25/20 09:06> Time Spent with Patient Time attestation: Total time spent providing and/or coordinating discharge services: <SHIN Perdue - Last Filed: 09/25/20 09:06> Discharge coordination time: Greater than 30 minutes <SHIN Perdue - Last Filed: 09/25/20 09:06> Quality: Stroke Does the patient have a stroke diagnosis?: No <SHIN Perdue Last Filed: 09/25/20 09:06> Physical Exam Vital Signs: Vital Signs: Last Vital Signs Temp 97.9 F 09/25/20 07:17 Pulse 68 09/25/20 07:17 Resp 18 09/25/20 07:17 BP 159/73 H 09/25/20 07:17 Pulse Ox 95 09/25/20 07:17 Body Mass Index 26.1 <SHIN Perdue Last Filed: 09/25/20 09:06> Const: General: alert and awake <SHIN Perdue Last Filed: 09/25/20 09:06> Nutritional Appearance: well nourished <SHIN Perdue Last Filed: 09/25/20 09:06> HENMT: Head: Yes normocephalic and Yes atraumatic <SHIN Perdue Last Filed: 09/25/20 09:06> Eyes: Sclerae: sclerae normal <SHIN Perdue Last Filed: 09/25/20 09:06> Resp: Effort & Inspection: normal respiratory effort and no respiratory distress <SHIN Perdue Last Filed: 09/25/20 09:06> Cardio: Rate: regular rate <SHIN Perdue Last Filed: 09/25/20 09:06> Rhythm: regular rhythm <SHIN Perdue Last Filed: 09/25/20 09:06> GI: Palpation (GI): Soft to palpation and nontender <SHIN Perdue Last Filed: 09/25/20 09:06> Neuro: Cranial nerves: Yes CN's II-XII intact bilaterally and Yes Bilaterally intact EOM present <SHIN Perdue Last Filed: 09/25/20 09:06> DS: Data Data Completed and Pending Labs on day of discharge: Laboratory Results - last 24 hr 09/25/20 05:23 Sodium 141 Potassium 3.3 Chloride 106 Carbon Dioxide 30 H Anion Gap 8 L BUN 18 H Creatinine 0.85 Estim Creat Clear Calc 46.1 Estimated GFR > 60 Random Glucose 105 Calcium 8.6 Preliminary micro results at discharge 09/23/20 12:38 Blood Culture - Preliminary Blood - Venous No growth after 24 hours. 09/23/20 12:35 Blood Culture - Preliminary Blood - Venous No growth after 24 hours. <SHIN Perdue Last Filed: 09/25/20 09:06> Discharge Plan Discharge Patient Disposition: Home, Self-Care <SHIN Perdue Last Filed: 09/25/20 09:06> Discharge Diagnosis: MEAGHAN UTI hypokalemia <SHIN Perdue Last Filed: 09/25/20 09:06> MEAGHAN UTI hypokalemia <Daniel Tellez MD - Last Filed: 09/25/20 21:47> Referrals: Sravanthi Davis MD [Physician] - 1 Week <SHIN Perdue - Last Filed: 09/25/20 09:06> Discharge Medications: New levofloxacin 250 mg tablet 250 mg PO Q24H 3 Days Qty: 3 RF: 0 Continued donepezil 10 mg Tablet 10 mg PO BEDTIME RF: 0 levothyroxine 25 mcg Tablet 25 mcg PO DAILY@0600 RF: 0 memantine 5 mg Tablet 5 mg PO BID RF: 0 potassium chloride 10 mEq Tablet Extended Release 20 meq PO BID RF: 0 triamterene-hydrochlorothiazid 37.5-25 mg Tablet 1.5 tab PO DAILY RF: 0 melatonin 3 mg Tablet 6 mg PO BEDTIME RF: 0 vitamin Q12-edzrl acid 1,000-400 mcg Tablet, Sublingual 1 tab SUBLINGUAL RF: 0 Changed furosemide [Lasix] 80 mg tablet 40 mg PO DAILY 30 Days Qty: 15 RF: 0 <SHIN Perdue - Last Filed: 09/25/20 09:06> Discharge Orders: Discharge Order (Routine); Ordered 09/25/20 Ordered By: Karla Amato <SHIN Perdue - Last Filed: 09/25/20 09:06> Diet: advance to usual diet <SHIN Perdue - Last Filed: 09/25/20 09:06> advance to usual diet <Daniel Tellez MD - Last Filed: 09/25/20 21:47> Activity on Discharge: As tolerated <SHIN Perdue - Last Filed: 09/25/20 09:06> As tolerated <Daniel Tellez MD - Last Filed: 09/25/20 21:47> Stand Alone Forms: Patient Portal Discharge page <SHIN Perdue - Last Filed: 09/25/20 09:06> Other Ambulatory Orders: Basic Metabolic Panel (Routine) Timeframe: [id number] Facility: [facility] - Location: Laboratory Ordered By: Karla Amato <SHIN Perdue - Last Filed: 09/25/20 09:06> Care Plan Goals: see below <SHIN Perdue - Last Filed: 09/25/20 09:06> Health Concerns: UTI MEAGHAN <SHIN Perdue - Last Filed: 09/25/20 09:06> Plan of Treatment: UTI. complete course of antibiotics MEAGHAN. resolved. your dose of lasix has been decreased. Please call to schedule a follow up appointment with your pcp Recommend to have repeat labs checked in 1 week <SHIN Perdue - Last Filed: 09/25/20 09:06> Assessment: see discharge summary I saw and examined the patient and discussed the managment and disposition with SHIN and I agree with discharge plan, except as otherwise stated <SHIN Perdue - Last Filed: 09/25/20 09:06> Discharge Date/Time: 09/25/20 10:30 <SHIN Perdue - Last Filed: 09/25/20 09:06>
== END 2020-09-25 10:30 | disposition home or self-care (01) | DRG 690 ==
LOC: HO.ED 13:15 → HO.EDOVER 15:22 → HO.IMC 16:03
PROVIDERS: Physician Assistant Medical; Admitting Provider Physician Assistant Medical; Emergency Provider Emergency Medicine; PCP Internal Medicine; Visit Provider Internal Medicine
DX: N39.0 Urinary tract infection, site not specified (principal); N17.9 Acute kidney failure, unspecified; E03.9 Hypothyroidism, unspecified; F03.90 Unspecified dementia, unspecified severity, without behavioral disturbance, psychotic disturbance, mood disturbance, and anxiety; J45.909 Unspecified asthma, uncomplicated; E87.6 Hypokalemia; B95.2 Enterococcus as the cause of diseases classified elsewhere; T50.2X5A Adverse effect of carbonic-anhydrase inhibitors, benzothiadiazides and other diuretics, initial encounter; Y92.9 Unspecified place or not applicable; Z20.822 Contact with and (suspected) exposure to COVID-19; Z88.0 Allergy status to penicillin; Z88.2 Allergy status to sulfonamides; Z79.890 Hormone replacement therapy; Z79.899 Other long term (current) drug therapy
CPT/HCPCS: 0241U; 20610; 36415; 70450; 71046; 72125; 73522; 73564; 80048; 80053; 81001; 81003; 83605; 83735; 83880; 84443; 84484; 85025; 85610; 87040; 87086; 87088; 87186; 93005; 99212; 99285; J0696; J1040

== ENCOUNTER → 2021-03-16 11:07 | Outpatient (BNVA) | payer MEDICARE, OTHER, SELFPAY | PROVIDERS: Visit Provider Physician Assistant | DX: M17.0 Bilateral primary osteoarthritis of knee (principal) | CPT/HCPCS: 20610; 99212; J1040 ==

== ENCOUNTER → 2021-06-15 08:59 | Outpatient (BNVA) | payer MEDICARE, OTHER, SELFPAY | PROVIDERS: Visit Provider Physician Assistant | DX: M17.0 Bilateral primary osteoarthritis of knee (principal) | CPT/HCPCS: 20610; 99212; J1020 ==

== ENCOUNTER → 2021-07-01 08:59 | Outpatient (BNVA) | payer MEDICARE, OTHER, SELFPAY | PROVIDERS: Visit Provider Physician Assistant | DX: M17.0 Bilateral primary osteoarthritis of knee (principal) | CPT/HCPCS: 20610; J7318 ==

== ENCOUNTER → 2021-08-05 08:27 | Outpatient (BNVA) | payer MEDICARE, OTHER, SELFPAY | PROVIDERS: Visit Provider Physician Assistant | DX: M17.0 Bilateral primary osteoarthritis of knee (principal) | CPT/HCPCS: 99212 ==

== ENCOUNTER → 2021-09-16 08:59 | Outpatient (BNVA) | payer MEDICARE, OTHER, SELFPAY | PROVIDERS: Visit Provider Physician Assistant | DX: M17.0 Bilateral primary osteoarthritis of knee (principal) | CPT/HCPCS: 20610; 99212; J1040 ==

== ENCOUNTER → 2021-12-22 09:14 | Outpatient (BNVA) | payer MEDICARE, OTHER, SELFPAY | PROVIDERS: PCP Internal Medicine; Visit Provider Physician Assistant | DX: M17.0 Bilateral primary osteoarthritis of knee (principal) | CPT/HCPCS: 20610; 99212; J1040 ==

== ENCOUNTER → 2022-03-27 08:40 | Outpatient (BNVA) | payer MEDICARE, OTHER, SELFPAY | PROVIDERS: PCP Internal Medicine; Visit Provider Physician Assistant | DX: M17.0 Bilateral primary osteoarthritis of knee (principal) | CPT/HCPCS: 20610; 99212; J1040 ==

== ENCOUNTER 2022-08-24 21:00 | Emergency (ER) | payer MEDICARE, OTHER, SELFPAY ==
--- NOTE | ~2022-08-24 | CT_ITS ---
EXAMINATION: NONCONTRAST HEAD CT NONCONTRAST CERVICAL SPINE CT INDICATION INFORMATION: Trauma COMPARISON: 09/23/2020 TECHNIQUE: Separate noncontrast CT examinations of the head and cervical spine were performed. Coronal head CT images and coronal and sagittal cervical spine images were created at the technologist workstation. DLP: 1277 mGy-cm DOSE LOWERING TECHNIQUES: This CT examination was performed using dose optimization techniques as appropriate, variously including the following: - Automated exposure control - Adjustment of mA and/or kV according to patient size (this includes techniques or standardized protocols for targeted exams were dose is matched to indication/reason for exam; i.e. extremities or head) - Use of iterative reconstruction technique FINDINGS: Head: There is no evidence of acute intracranial hemorrhage or territorial infarction. No abnormal mass-effect or midline shift is seen. [place] to white matter differentiation is well preserved. No extra-axial fluid collections are identified. The ventricles are normal in size. There is mild periventricular white matter hypoattenuation consistent with chronic small vessel ischemic disease. Mild volume loss is noted. Posterior scalp soft tissue swelling noted towards the vertex. No acute fracture is seen. The mastoid air cells and visualized portions of the paranasal sinuses are well-aerated. Cervical spine: There is anatomic alignment of the vertebral bodies and posterior elements. Vertebral body heights are maintained. There is moderate to severe bilateral facet arthropathy. There is disc space narrowing and endplate osteophyte formation in the lower cervical spine. There is degenerative change at the atlantodens articulation. No evidence of acute fracture. No prevertebral soft tissue swelling. Visualized portions of the lung apices are unremarkable. Left thyroid lobe calcification noted. CT/CT cervical spine wo IV con IMPRESSION: HEAD: No acute intracranial findings. Posterior scalp soft tissue swelling towards the vertex. CERVICAL SPINE: No acute findings identified. Degenerative changes as noted above.
[2022-08-24 21:06] VITALS: BP 142/78; PULSE 82; RESP 20; TEMP 36.3; O2SAT 97; BMI 26.4
--- NOTE | 2022-08-24 22:17 | ED.GENADULT ---
HPI - General Adult General Chief complaint: Fall Stated complaint: Fall/injury to back of head Time Seen by Provider: 08/24/22 22:04 Source: patient, family (Patient's daughter), RN notes reviewed and old records reviewed Mode of arrival: ambulatory Limitations: other (History dementia) History of Present Illness HPI narrative: 87-year-old female with past medical history significant for dementia presents for evaluation after a fall Patient was attempting to get into the car after dinner For the daughter, the car was parked on a slight hill. The patient fell backwards into 1 of the patient's other daughters and then struck the back of her head on the ground There was no loss of consciousness The patient is not on any blood thinners She complains of mild pain to the back of her head Related Data Home Medications Medication Instructions Recorded Confirmed donepezil 10 mg tablet 10 mg PO BEDTIME 09/23/20 09/23/20 levothyroxine 25 mcg tablet 25 mcg PO DAILY@0600 09/23/20 09/23/20 melatonin 3 mg tablet 6 mg PO BEDTIME 09/23/20 09/23/20 memantine 5 mg tablet 5 mg PO BID 09/23/20 09/23/20 potassium chloride 10 mEq 20 meq PO BID 09/23/20 09/23/20 tablet,extended release triamterene 37.5 1.5 tab PO DAILY 09/23/20 09/23/20 mg-hydrochlorothiazide 25 mg tablet vitamin B12 1,000 mcg-folic acid 1 tab sublingual 09/23/20 400 mcg sublingual tablet Previous Rx's Medication Instructions Recorded furosemide 80 mg tablet (Lasix) 40 mg PO DAILY 30 days #15 tabs 09/25/20 levofloxacin 250 mg tablet 250 mg PO Q24H 3 days #3 tabs 09/25/20 Allergies Allergy/AdvReac Type Severity Reaction Status Date / Time Penicillins [PENICILLINS] Allergy Intermediate Rash Verified 08/24/22 21:06 Sulfa (Sulfonamide Allergy Intermediate Rash Verified 08/24/22 21:06 Antibiotics) [SULFA (SULFONAMIDE ANTIBIOTICS)] tetanus and diphtheria Allergy Intermediate Redness of Verified 08/24/22 21:06 toxoids Skin [TETANUS AND DIPHTHERIA TOXOIDS] codeine [CODEINE] Allergy Unknown Rash Verified 08/24/22 21:06 penicillin G Allergy Unknown unk Verified 08/24/22 21:06 Sulfa Allergy Unknown unk Uncoded 03/27/22 08:49 TETANUS Allergy Unknown unk Uncoded 03/27/22 08:49 Review of Systems Constitutional: Constitutional: Reports as per HPI, Denies chills, Denies fatigue and Denies fever(s) Cardiovascular: Cardiovascular: Denies chest pain and Denies dyspnea Respiratory: Respiratory: Denies cough and Denies dyspnea Gastrointestinal: Gastrointestinal: Denies abdominal pain, Denies constipation and Denies vomiting Genitourinary: Genitourinary: Denies dysuria Neurologic: Denies focal weakness Endocrine: Endocrine: Denies fatigue PMFSH Past Medical History Medical History Bilateral post-traumatic osteoarthritis of knee Cataract Fluid retention HTN (hypertension) Lymphedema of both lower extremities Surgical History History of bladder surgery History of hip surgery Status post ablation of incompetent vein using laser Family History Family History Other HTN (hypertension) Social History Social History Household Members: Children Housing: House Alcohol intake: never Smoked in Last 30 Days: No Use of substances other than those prescribed or required for medical reasons: No Advance Directives: Yes Advance Directives on File: Yes Advance Directives Date on File: 09/23/20 service: No Current occupational status: retired Current occupation: Right Handed Physical Exam ED Vital Signs: Vital Signs - 24 hr 08/24/22 21:06 08/24/22 22:34 Temperature 97.3 F 97.6 F Pulse Rate 82 93 Respiratory Rate 20 16 Blood Pressure 142/78 H 175/86 H Pulse Oximetry 97 94 Oxygen Delivery Method Room Air Room Air BMI result Body Mass Index 26.4 Const General: healthy appearing, comfortable, no acute distress, alert and awake Nutritional Appearance: well nourished Orientation/consciousness: patient oriented x3 Eyes Eyelids: Yes eyelids normal Conjunctivae: conjunctivae normal Sclerae: sclerae normal Corneas: corneas normal Pupils: Equal, round and reactive pupils present EOM: EOMs intact bilaterally Neck Neck: Yes full ROM Resp Effort & Inspection: normal respiratory effort, able to speak in complete sentences and not labored Cardio Rate: regular rate Rhythm: regular rhythm GI Inspection: No distended Palpation (GI): Soft to palpation, not firm, nontender, no guarding and not rigid Auscultation: normoactive bowel sounds Skin Other: Patient has a small, 2 cm linear laceration to the posterior scalp General skin exam: no rashes or lesions noted and elasticity normal Neuro General: patient oriented x3 Cranial nerves: Yes CN's II-XII intact bilaterally, Yes Equal, round and reactive pupils present and Yes Bilaterally intact EOM present Cognition (Neuro): normal cognition Extrem Other: Moving all extremities well without any obvious deformities. No tenderness with manipulation of the hips bilaterally or pelvis. Course Reevaluation(s) Reevaluation #1: Patient ultimately declined tetanus booster today as there is a previous adverse reaction in the chart. CT scan is negative for traumatic injuries. The patient's daughter would like to take the patient home with her tonight Time: 23:28 Medications Administered Discontinued Medications Generic Name Dose Route Start Last Admin Trade Name Adalberto PRN Reason Stop Dose Admin Acetaminophen 975 mg 08/24/22 22:52 08/24/22 23:01 Acetaminophen 325 Mg Tablet PO 08/24/22 22:53 975 mg ONCE ONE Administration Diphtheria/Tetanus/Acell Pertussis 0.5 ml 08/24/22 22:52 08/24/22 23:01 Diphth,Pertus(Acell),Tet Adult 0.5 Ml Syringe IM 08/24/22 22:53 Not Given .ONCE ONE Lidocaine/Epinephrine 10 ml 08/24/22 22:15 08/24/22 22:51 Lidocaine Hcl 1% Pf/Epi 1:200,000 10 Ml Vial INFILTRATI 08/24/22 22:16 10 ml ONCE ONE Administration Procedures Laceration Laceration 1: Site: scalp (Posterior scalp) Size (cm): 2 Description: linear Depth: simple, single layer Local Anesthetic: lidocaine 1% Amount of anesthesia used (mL): 3 Pre-repair: wound explored and irrigated extensively Size (cm): other (Surgical jasmin) Number of sutures: 5 Medical Decision Making Medical Decision Making MDM Narrative: Patient had a nonsyncopal fall while trying to get into the car. With a CT scan the brain and cervical spine. Though she remains at her neurologic baseline and her low suspicion for intracranial hemorrhage. The patient's wound the back for scalp will require closure, see procedure note. Patient does not appear to have any other traumatic injuries and is moving all extremities well. Differential Diagnosis Intracranial hemorrhage Cervical fracture Contusion Laceration Radiology Impression Discussion of test interpretation with radiology: I have reviewed the radiologist's reading. (CT scan brain and cervical spine negative for acute traumatic injuries) Discharge Plan Discharge Clinical Impression: Laceration of scalp, Fall Patient Disposition: Home, Self-Care Instructions: Laceration (ED) Additional Instructions: You had 5 jasmin today that can be removed in [address] scans of your brain and cervical spine did not show any evidence of traumatic injuries Take Tylenol as needed for pain You may apply ice to the sore area on the back of your head to reduce swelling Follow-up with your primary doctor Prescriptions: No Action donepezil 10 mg Tablet 10 mg PO BEDTIME levothyroxine 25 mcg Tablet 25 mcg PO DAILY@0600 memantine 5 mg Tablet 5 mg PO BID potassium chloride 10 mEq Tablet Extended Release 20 meq PO BID triamterene-hydrochlorothiazid 37.5-25 mg Tablet 1.5 tab PO DAILY melatonin 3 mg Tablet 6 mg PO BEDTIME vitamin B08-btjtg acid 1,000-400 mcg Tablet, Sublingual 1 tab SUBLINGUAL furosemide [Lasix] 80 mg tablet 40 mg PO DAILY 30 Days Qty: 15 0RF levofloxacin 250 mg tablet 250 mg PO Q24H 3 Days Qty: 3 0RF
[2022-08-24 22:34] VITALS: BP 175/86; PULSE 93; RESP 16; TEMP 36.4; O2SAT 94
[2022-08-24] MEDS: Acetaminophen 325 MG TABLET 975 MG PO (23:01)
== END 2022-08-24 23:42 | disposition home or self-care (01) ==
PROVIDERS: Emergency Provider Internal Medicine
DX: S01.01XA Laceration without foreign body of scalp, initial encounter (principal); W10.1XXA Fall (on)(from) sidewalk curb, initial encounter; Y93.89 Activity, other specified; Y92.480 Sidewalk as the place of occurrence of the external cause; Y99.9 Unspecified external cause status
CPT/HCPCS: 12001; 70450; 72125; 99284

== ENCOUNTER → 2022-09-15 12:01 | Outpatient (BNVA) | payer MEDICARE, OTHER, SELFPAY | PROVIDERS: Visit Provider Physician Assistant | DX: M17.0 Bilateral primary osteoarthritis of knee (principal) | CPT/HCPCS: 20610; 99212; J1040 ==

== ENCOUNTER 2022-12-15 09:07 | Outpatient (AMB) | payer MEDICARE, OTHER, SELFPAY ==
--- NOTE | 2022-12-15 09:27 | A.OFFVIS_ITS ---
Intake Intake Visit Reasons: OV-B/L knee injection-last injection 09/15/22 Intake Note: Marina an 87 year old female who presents today for a follow up of bilateral knee, last injections 09/15/22. Patient reports injections provided her good relief and is requesting to repeat injections. Allergies Penicillins [PENICILLINS] Allergy (Intermediate, Verified 12/15/22 09:30) Rash Sulfa (Sulfonamide Antibiotics) [SULFA (SULFONAMIDE ANTIBIOTICS)] Allergy ( Intermediate, Verified 12/15/22 09:30) Rash tetanus and diphtheria toxoids [TETANUS AND DIPHTHERIA TOXOIDS] Allergy (Intermediate, Verified 12/15/22 09:30) Redness of Skin codeine [CODEINE] Allergy (Unknown, Verified 12/15/22 09:30) Rash penicillin G Allergy (Unknown, Verified 12/15/22 09:30) unk Sulfa Allergy (Unknown, Uncoded 12/15/22 09:30) unk TETANUS Allergy (Unknown, Uncoded 12/15/22 09:30) unk HPI OV-B/L knee injection-last injection 09/15/22 HPI Details 87-year-old female who returns to the [facility] today for a follow-up of bilateral knee pain. She had her last injection on 09/15/22 which provided her good relief. She is interested in repeating the injection. [facility] Medical History Bilateral post-traumatic osteoarthritis of knee Cataract Fluid retention HTN (hypertension) Lymphedema of both lower extremities Surgical History History of bladder surgery History of hip surgery Status post ablation of incompetent vein using laser Family History Other HTN (hypertension) Social History Household Members: Children Housing: House Alcohol intake: never Advance Directives Date on File: 09/23/20 service: No Current occupational status: retired Current occupation: Right Handed Review of Systems Const All systems reviewed & are unremarkable except as noted in HPI and below Physical Exam Extrem Other: Bilat knee normal to inspection. She has full range of motion with crepitus. No significant tenderness to palpation. No erythema or joint effusion. Calf supple nontender. Neurovascular intact. Office Procedures Joint Injection/Drain Joint Injection/Drain Primary Site: right knee Secondary Site: left knee Prep: site was prepped using aseptic technique, ethochloride spray was applied and injection warnings given Injected: 80 mg of, DepoMedrol, with 8 mL of, 1% plain lidocaine and in the joint Approach Used: anterolateral Procedure: The patient tolerated the procedure well and there was some relief with the local anesthesia Coding 04262 - Glenohumeral/Tronchanteric Bursa/Intraarticular Procedure code (CPT) selection complete Results Reviewed Results Reviewed: 12/15/22 09:30 Lidocaine HCl 2 % MPF [Xylocaine 2 % MPF] 5 ml .ROUTE .STK-MED ONE methylPREDNISolone acetate [DEPO-MedroL] 80 mg .ROUTE .STK-MED ONE Assessment & Plan Assessment & Plan (1) Osteoarthritis of knees, bilateral: Code(s): M17.0 - Bilateral primary osteoarthritis of knee Qualifiers: Osteoarthritis type: primary Qualified Code(s): M17.0 - Bilateral primary osteoarthritis of knee Plan We discussed options today which include steroid injection. They did consent to move forward with the bilateral knee injection, which was tolerated well. I recommended rest, ice and elevation and OTC anti-inflammatories PRN for discomfort. If symptoms persist or worsens over the next 6-8 weeks, patient will contact the office, otherwise follow-up as needed. Patient Instructions: Scribed for Radha Billy PA-C, by Caden Wilburn medical apparatus model maker, on 12/15/2022 at 9:30 AM EST. Radha Shepard PA-C, have personally reviewed and agree with the information entered by the scribe. Coding Level of Care Code Est Pt Level 3 (65289) Diagnoses Primary osteoarthritis of both knees M17.0 Osteoarthritis type: primary CPT Codes Coding - Joint 7: 59570 - Glenohumeral/Tronchanteric Bursa/Intraarticular ([id number])
== END 2022-12-15 09:56 | disposition home or self-care (01) ==
PROVIDERS: Visit Provider Physician Assistant
DX: M17.0 Bilateral primary osteoarthritis of knee (principal)
CPT/HCPCS: 20610

== ENCOUNTER → 2022-12-15 09:07 | Outpatient (BNVA) | payer MEDICARE, OTHER, SELFPAY | PROVIDERS: Visit Provider Physician Assistant | DX: M17.0 Bilateral primary osteoarthritis of knee (principal) | CPT/HCPCS: 20610; J1040 ==

== ENCOUNTER 2023-02-26 11:55 | Outpatient (AMB) | payer MEDICARE, OTHER, SELFPAY ==
--- NOTE | 2023-02-26 12:02 | A.OFFVIS_ITS ---
Intake Vital Signs 02/26/23 12:04 Height 5 ft 1 in Weight 140 lb BMI 26.4 Intake Visit Reasons: OV- Bilateral knee Durolane injection Intake Note: Marina george 87 year old female presents today with her daughter for bilateral knee Durolane injection. Allergies Penicillins [PENICILLINS] Allergy (Intermediate, Verified 02/26/23 12:05) Rash Sulfa (Sulfonamide Antibiotics) [SULFA (SULFONAMIDE ANTIBIOTICS)] Allergy (Intermediate, Verified 02/26/23 12:05) Rash tetanus and diphtheria toxoids [TETANUS AND DIPHTHERIA TOXOIDS] Allergy (Intermediate, Verified 02/26/23 12:05) Redness of Skin codeine [CODEINE] Allergy (Unknown, Verified 02/26/23 12:05) Rash penicillin G Allergy (Unknown, Verified 02/26/23 12:05) unk Sulfa Allergy (Unknown, Uncoded 02/26/23 12:05) unk TETANUS Allergy (Unknown, Uncoded 02/26/23 12:05) unk HPI OV- Bilateral knee Durolane injection HPI Details 87-year-old female who returns to the [facility] today for bilateral knee Durolane injection. [facility] Medical History Bilateral post-traumatic osteoarthritis of knee Cataract Fluid retention HTN (hypertension) Lymphedema of both lower extremities Surgical History Status post ablation of incompetent vein using laser History of bladder surgery History of hip surgery Family History Other HTN (hypertension) Household Members: Children Housing: House Alcohol intake: never Advance Directives Date on File: 09/23/20 service: No Current occupational status: retired Current occupation: Right Handed Review of Systems Const All systems reviewed & are unremarkable except as noted in HPI and below Physical Exam Vital Signs: BMI result Body Mass Index 26.4 Extrem Other: Bilat knee normal to inspection. She has full range of motion with crepitus. No significant tenderness to palpation. No erythema or joint effusion. Calf supple nontender. Neurovascular intact. Office Procedures Joint Injection/Drain Joint Injection/Drain Details: Durolane injection Primary Site: right knee Secondary Site: left knee Prep: site was prepped using aseptic technique, ethochloride spray was applied and injection warnings given Injected: in the joint Approach Used: anterolateral Procedure: The patient tolerated the procedure well Coding 85254 - Glenohumeral/Tronchanteric Bursa/Intraarticular Procedure code (CPT) selection complete Assessment & Plan Assessment & Plan (1) Osteoarthritis of knees, bilateral: Code(s): M17.0 - Bilateral primary osteoarthritis of knee Qualifiers: Osteoarthritis type: primary Qualified Code(s): M17.0 - Bilateral primary osteoarthritis of knee Plan We discussed options today which include Durolane injection. They did consent to move forward with the bilateral knee Durolane injection, which was tolerated well. I recommended rest, ice and elevation and OTC anti-inflammatories PRN for discomfort. If symptoms persist or worsens over the next 6-8 weeks, patient will contact the office, otherwise follow-up as needed. Patient Instructions: Scribed for Radha Billy PA-C, by [employer]burn health care / medical job titles, on 02/26/2023 at 12:45 PM EST. I, Radha Billy PA-C, have personally reviewed and agree with the information entered by the scribe. Coding Level of Care Code Procedure Only Diagnoses Primary osteoarthritis of both knees M17.0 Osteoarthritis type: primary CPT Codes Coding - Joint 7: 94833 - Glenohumeral/Tronchanteric Bursa/Intraarticular ([id number])
[2023-02-26 12:04] VITALS: BMI 26.4
== END 2023-02-26 12:51 | disposition home or self-care (01) ==
PROVIDERS: Visit Provider Physician Assistant
DX: M17.0 Bilateral primary osteoarthritis of knee (principal)
CPT/HCPCS: 20610

== ENCOUNTER → 2023-02-26 11:55 | Outpatient (BNVA) | payer MEDICARE, OTHER, SELFPAY | PROVIDERS: Visit Provider Physician Assistant | DX: M17.0 Bilateral primary osteoarthritis of knee (principal) | CPT/HCPCS: 20610; J7318 ==

== ENCOUNTER 2023-08-18 09:02 | Inpatient (IN) | payer MEDICARE, OTHER, SELFPAY ==
[2023-08-18] VITALS (9 sets, daily range): BP systolic 85–145; BP diastolic 47–75; PULSE 54–100; RESP 16–20; TEMP 36–36.8; O2SAT 93–95; BMI 23.9; BMI 24.2
--- NOTE | ~2023-08-18 | XR_ITS ---
EXAMINATION: XR CHEST CLINICAL INFORMATION: Weakness. COMPARISON: Chest radiograph 09/23/2020. TECHNIQUE: 2 views of the chest were obtained. FINDINGS: Stable prominence of the cardiomediastinal silhouette. Unchanged mild central bronchovascular thickening. No new focal airspace opacities. No pleural effusion or pneumothorax. Thoracic spondylosis. No acute osseous findings. XR/XR chest 2V IMPRESSION: No acute cardiopulmonary findings.
--- NOTE | ~2023-08-18 | MR_ITS ---
EXAMINATION: MR BRAIN WITHOUT CONTRAST CLINICAL INFORMATION: Sparing spells, rule out TIA/CVA COMPARISON: CT head on 08/24/2022 TECHNIQUE: MRI of the brain was obtained using routine sequences without contrast. FINDINGS: No acute intracranial hemorrhage or infarct. Scattered and confluent periventricular and deep white matter T2/FLAIR hyperintensities, nonspecific however commonly seen with small vessel ischemic disease. Diffuse prominence of the sulci with associated ex vacuo dilation of the ventricles compatible with global cerebral atrophy. No midline shift or hydrocephalus. No acute extra-axial fluid collections. The osseous structures are unremarkable. The pituitary gland, pineal gland and remaining midline structures are unremarkable. No orbital pathology. The paranasal sinuses and mastoid air cells are clear. MR/MR head/brain wo con IMPRESSION: -No acute intracranial abnormality. 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
--- NOTE | 2023-08-18 09:44 | ECG_ITS ---
Test Reason : WEAKNESS Blood Pressure : / mmHG Vent. Rate : 059 BPM Atrial Rate : 059 BPM P-R Int : 214 ms QRS Dur : 100 ms QT Int : 514 ms P-R-T Axes : 061 022 021 degrees QTc Int : 508 ms Sinus bradycardia with 1st degree A-V block Abnormal ECG When compared with ECG of 23-SEP-2020 09:23, Premature ventricular complexes are no longer Present Referred By: Maddie Vasquez Electronically Signed By:Micheal Sam
--- NOTE | 2023-08-18 10:29 | ED_ITS ---
HPI - General Adult General Chief complaint: General Medical Stated complaint: verty weak Time Seen by Provider: 08/18/23 09:37 Source: patient and family Mode of arrival: ambulatory Limitations: no limitations and altered mental status (Baseline dementia with confusion, history provided from daughter and son) History of Present Illness HPI narrative: Patient is an 88-year-old female who presents emergency department with daughter and son for evaluation of near syncopal episode. Daughter reports that this morning she was walking patient to the restroom, when she seemed to ?freeze in place? with her legs becoming weak, she was standing behind her so she was able to lower her to the ground without any fall or injury. She denies loss of consciousness. Her brother was able to give her assistance to get patient to a chair to sit down. Daughter states that she had a similar episode to this having occurred 2 days ago, she was evaluated at the primary care office yesterday with concern that perhaps her ?medications were not right?, her doctor verified that the medications the head in hand warm fact the ones prescribed and deemed appropriate. Daughter states that she has been having conversations with people on there and appearing to be picking at things in the air that are not present, but per her son this is typical behavior for her with her history of dementia but perhaps slightly increased. They expressed concern about possible urinary tract infection she however is incontinent at times and they were unable to get a urine sample at the doctor's office yesterday. Related Data Home Medications ?Medication ?Instructions ?Recorded ?Confirmed donepezil 10 mg tablet 10 mg PO BEDTIME 09/23/20 08/18/23 levothyroxine 25 mcg tablet 25 mcg PO DAILY@0600 09/23/20 08/18/23 memantine 5 mg tablet 5 mg PO BID 09/23/20 08/18/23 potassium chloride 10 mEq 20 meq PO BID 09/23/20 08/18/23 tablet,extended release triamterene 37.5 1.5 tab PO QAM 09/23/20 08/18/23 mg-hydrochlorothiazide 25 mg tablet furosemide 40 mg tablet 60 mg PO QAM 12/15/22 08/18/23 ascorbic acid 1,000 1 ea PO DAILY 08/18/23 08/18/23 [id number] powder effervescent pack (Emergen-C) cholecalciferol (vitamin D3) 25 25 mcg PO DAILY 08/18/23 08/18/23 mcg (1,000 unit) tablet melatonin 5 mg tablet 5 mg PO BEDTIME 08/18/23 08/18/23 Allergies Allergy/AdvReac Type Severity Reaction Status Date / Time Penicillins [PENICILLINS] Allergy Intermediate Rash Verified 08/18/23 09:21 Sulfa (Sulfonamide Allergy Intermediate Rash Verified 08/18/23 09:21 Antibiotics) [SULFA (SULFONAMIDE ANTIBIOTICS)] tetanus and diphtheria Allergy Intermediate Redness of Verified 08/18/23 09:21 toxoids Skin [TETANUS AND DIPHTHERIA TOXOIDS] codeine [CODEINE] Allergy Unknown Rash Verified 08/18/23 09:21 Review of Systems 2 Review of Systems: Yes all other systems are reviewed and are negative [facility] Past Medical History Attestation statement: The following information was validated with the patient. Source: old records reviewed Medical History Bilateral post-traumatic osteoarthritis of knee Lymphedema of both lower extremities Fluid retention Cataract HTN (hypertension) Surgical History Status post ablation of incompetent vein using laser History of bladder surgery History of hip surgery Family History Family History Other HTN (hypertension) Social History Social History Household Members: Children Housing: House Alcohol intake: never Patient Tobacco Use Status: Never used Tobacco Smoked in Last 30 Days: No Use of substances other than those prescribed or required for medical reasons: No Advance Directives: No Advance Directives Information Provided: Yes Advance Directives Date on File: 09/23/20 Do you have a plan to hurt others: No Plan Nutrition Risks: No Nutritional Risk service: No Current occupational status: retired Current occupation: Right Handed Physical Exam ED Vital Signs: Vital Signs - 24 hr 08/18/23 09:18 08/18/23 09:50 08/18/23 11:38 Temperature 96.9 F Pulse Rate 78 58 54 Respiratory Rate 17 16 Blood Pressure 124/63 124/61 145/67 H Pulse Oximetry 94 93 Oxygen Delivery Method Room Air Room Air 08/18/23 11:38 05/11/24 11:39 Temperature Pulse Rate 55 96 Respiratory Rate Blood Pressure 124/61 91/63 Pulse Oximetry Oxygen Delivery Method BMI result Body Mass Index 23.9 Appearance: Alert.? Disoriented No acute distress.?Normal affect. Eyes: Pupils equal, round and reactive to light.? EOMI. No nystagmus. ENT: Pharynx normal.?? Neck: Normal inspection.? Neck supple.?? CVS: Heart sounds normal. Normal heart rate and rhythm.? Pulses normal.?? Respiratory: No respiratory distress.? Lung sounds clear to auscultation bilaterally?? Abdomen: Soft and non-tender. Normoactive bowel sounds. Skin: Skin warm and dry.? Normal skin color.? Extremities: 2+ bilateral lower extremity edema.? Neuro: Moves all extremities spontaneously. Sensation intact bilaterally. No focal neuro deficits. Ambulates with slow unsteady gait Course Reevaluation(s) Reevaluation #1: Urinalysis consistent with infection, covered with Rocephin. EKG revealing sinus bradycardia with first-degree AV block as seen previously however she does have QT prolongation at 508ms, hypokalemia at 2.6 with normal magnesium. Upon speaking with daughter she is currently prescribed potassium chloride ER 40 mEq use daily since she is prescribed triamterene HCTZ, however on 08/06/2023 she was newly started on furosemide due to bilateral lower extremity swelling, she was prescribed 60 mg daily, however daughter does report that she may have actually only been giving her 40 mg daily. She has profound orthostatic hypotension with a SBP supine of 145 and SBP standing of 91, suspect that this is secondary to furosemide/antihypertensives.. Patient receive potassium chloride mEq IV and 40 mEq orally in addition to feeling, admitting to Medicine Service. Time: 11:43 Medications Administered Generic Name Dose Route Start Last Admin Trade Name Freq PRN Reason Stop Dose Admin Sodium Chloride 1,000 mls @ 80 mls/hr 08/18/23 12:30 08/18/23 15:05 Ns IVCONT 80 mls/hr .[id number] SIENNA Administration Sodium Chloride 3 ml 08/18/23 16:00 08/18/23 16:05 0.9 % Sodium Chloride Flush 3 Ml Syringe IVFLUSH Not Given QSHIFT SIENNA Discontinued Medications Generic Name Dose Route Start Last Admin Trade Name Freq PRN Reason Stop Dose Admin Potassium Chloride 10 meq in 100 mls @ 100 mls/hr 08/18/23 11:30 08/18/23 15:06 Potassium Chloride/H20 IV 08/18/23 13:29 Infused Q1H SIENNA Infusion Sodium Chloride 1,000 mls @ 999 mls/hr 08/18/23 11:45 08/18/23 13:39 Ns IV 08/18/23 12:45 Infused .Q1H1M SIENNA Infusion Ceftriaxone Sodium 1 gm/ 50 mls @ 100 mls/hr 08/18/23 11:49 08/18/23 15:08 Sodium Chloride IV 08/18/23 12:18 Not Given ONCE ONE Ceftriaxone Sodium 1 gm/ 50 mls @ 100 mls/hr 08/18/23 15:15 08/18/23 15:49 Sodium Chloride IV 08/18/23 15:44 Infused ONCE ONE Infusion Potassium Chloride 40 meq 08/18/23 11:27 08/18/23 12:17 Potassium Chloride Packet 20 Meq Packet PO 08/18/23 11:28 40 meq ONCE ONE Administration Medical Decision Making Medical Decision Making MDM Narrative: Patient is an 88-year-old female with past medical history of hypertension, hypothyroidism, dementia presenting to emergency department for 2 episodes of near-syncope generalized weakness as per HPI. Will obtain CBC to evaluate for leukocytosis/ anemia, CMP and lipase to evaluate for abnormal electrolytes /abnormal renal function/ abnormal hepatic/biliary function, EKG and troponin to evaluate for ischemia/ACS. Chest x-ray to evaluate for consolidation/ infiltrate/ mass/ pulmonary congestion and Urinalysis. Differential Diagnosis Differential Diagnoses: The differential diagnosis associated with the presentation includes (See narrative above) Admission/Observation Consideration of admission/observation: Escalation of care including admission/observation considered (See course narrative) Consult Healthcare Provider Management of the patient was discussed with: Hospitalist Lab Data MDM Lab Attestation statement: I reviewed the patient's lab results. (Course narrative) 08/18/23 10:36 08/18/23 10:36 Labs: Lab Results 08/18/23 08/18/23 Range/Units 10:36 11:13 WBC 8.7 (4.8-10.8) X10*3/uL RBC 4.31 (4.20-5.50) X10*6/uL Hgb 13.5 (12.0-16.0) g/dl Hct 38.9 (37.0-47.0) % MCV 90.3 (80.0-98.0) fL MCH 31.3 (27.0-33.0) pg MCHC 34.7 (31.0-35.0) g/dl RDW 12.1 (11.0-16.0) % Plt Count 296 (160-400) X10*3/uL MPV 9.2 L (9.4-12.3) fL Immature Gran % (Auto) 0.3 (0.0-0.4) % Neut % (Auto) 79.2 H (45-73) % Lymph % (Auto) 12.3 L (20-40) % [place] % (Auto) 7.2 (2-11) % Eos % (Auto) 0.5 (0-4) % Baso % (Auto) 0.5 (0-2) % Lymph # (Auto) 1.1 L (1.2-4.9) X10*3/uL [place] # (Auto) 0.6 (0.1-1.2) X10*3/uL Eos # (Auto) 0.0 (0.0-0.4) X10*3/uL Baso # (Auto) 0.0 (0.0-0.2) X10*3/uL Abs Immat Gran (auto) 0.03 (0.00-0.03) X10*3/uL Absolute Neuts (auto) 6.9 (2.0-8.3) x10*3/uL Absolute Nucleated RBC 0.000 (0.0-0.012) X10*3/uL Nucleated RBC % (auto) 0.0 (0.0-0.2) /100WBC Sodium 134 L (135-145) mmol/L Potassium 2.6 L* (3.3-5.1) mmol/L Chloride 88 L (96-108) mmol/L Carbon Dioxide 34 H (22-29) mmol/L Anion Gap 15 (12-20) BUN 18 H (9-16) mg/dL Creatinine 1.14 (0.5-1.4) mg/dL Estim Creat Clear Calc 26.9 Estimated GFR 45 Random Glucose 134 H (60-115) mg/dL Calcium 9.6 D (8.4-10.2) mg/dL Magnesium 2.2 (1.6-2.6) mg/dL Total Bilirubin 0.7 (0.0-1.0) mg/dL AST 18 (5-31) U/L ALT 17 (0-31) U/L Alkaline Phosphatase 111 (39-117) U/L Troponin I High Sens 17.7 H (<3.5-17.0) ng/L Total Protein 7.3 (6.5-8.0) g/dL Albumin 3.9 (3.5-5.0) g/dL Urine Color Yellow Urine Appearance Cloudy Urine pH 6.5 (5.0-9.0) Ur Specific [place] 1.010 (1.005-1.025) Urine Protein Negative (Neg-Trace) mg/dL Urine Glucose (UA) Negative (Negative) mg/dL Urine Ketones Negative (Negative) mg/dL Urine Blood Negative (Negative) Urine Nitrite Negative (Negative) Ur Leukocyte Esterase Large (3+) H (Negative) Urine RBC 3-5 H (0-2) /HPF Urine WBC >50 H (0-5) /HPF Ur Squamous Epith Cells 3-5 (0-2) /HPF Urine Bacteria 3+ (None Seen) Hyaline Casts 0-2 (0-2) /LPF Influenza Type A (PCR) NEGATIVE (Negative) Influenza Type B (PCR) NEGATIVE (Negative) RSV RNA Qual (PCR) NEGATIVE (Negative) SARS-CoV-2 RNA (RT-PCR) NEGATIVE (Negative) Independent Interpretation I performed an independent interpretation of an: Plain X-Ray (No acute consolidations or infiltrate) Radiology Impression Discussion of test interpretation with radiology: I have reviewed the radiologist's reading. Radiologist Impression: XR/XR chest 2V IMPRESSION: No acute cardiopulmonary findings. Discharge Plan Discharge Clinical Impression: Hypokalemia Patient Disposition: Admitted As Inpatient Interventions: Admission Worksheet (ED) Last Done: 08/18/23 16:07
[2023-08-18 10:39] LABS: MANUAL DIFF FLAG NO
[2023-08-18 10:41] LABS: Basophils Percent Auto 0.5 % (0-2); Eosinophils Percent Auto 0.5 % (0-4); Hematocrit 38.9 % (37.0-47.0); Hemoglobin 13.5 g/dl (12.0-16.0); Imm Gran Abs Auto 0.03 X10*3/uL (0.00-0.03); Imm Gran Pct Auto 0.3 % (0.0-0.4); Lymphocytes Absolute Auto 1.1 X10*3/uL (1.2-4.9); Lymphocytes Percent Auto 12.3 % (20-40); Mean Corpuscular HGB Conc 34.7 g/dl (31.0-35.0); Mean Corpuscular Hemoglobin 31.3 pg (27.0-33.0); Mean Corpuscular Volume 90.3 fL (80.0-98.0); Mean Platelet Volume 9.2 fL (9.4-12.3); Monocytes Absolute Auto 0.6 X10*3/uL (0.1-1.2); Monocytes Percent Auto 7.2 % (2-11); Neutrophils Absolute Auto 6.9 x10*3/uL (2.0-8.3); Neutrophils Percent Auto 79.2 % (45-73); Platelet Count 296 X10*3/uL (160-400); Red Blood Count 4.31 X10*6/uL (4.20-5.50); Red Cell Distribution Width 12.1 % (11.0-16.0); White Blood Count 8.7 X10*3/uL (4.8-10.8)
[2023-08-18 11:17] LABS: Influenza A PCR NEGATIVE (Negative); Influenza B PCR NEGATIVE (Negative); Resp Syncy Virus RNA Qual PCR NEGATIVE (Negative); SARS COV2 PCR INHOUSE NEGATIVE (Negative)
[2023-08-18 11:21] LABS: Appearance Urine Cloudy; Color Urine Yellow; Glucose Urine UA Negative (Negative); Leukocyte Esterase Urine Large (3+) (Negative); Nitrite Urine Negative (Negative); PH 6.5 (5.0-9.0); UMIC TRIGGER UACC YES; Urine Blood Negative (Negative); Urine Ketones Negative (Negative); Urine Protein Negative (Neg-Trace)
[2023-08-18 11:24] LABS: Alanine Aminotransferase 17 U/L (0-31); Albumin Level 3.9 g/dL (3.5-5.0); Alkaline Phosphatase 111 U/L (39-117); Anion Gap 15 (12-20); Aspartate Amino Transferase 18 U/L (5-31); Bilirubin Total 0.7 mg/dL (0.0-1.0); Blood Urea Nitrogen 18 mg/dL (9-16); Calcium 9.6 mg/dL (8.4-10.2); Carbon Dioxide 34 mmol/L (22-29); Chloride 88 mmol/L (96-108); Creatinine Clr Calc Pharmacy 26.9; Estimated Glomerular Filt Rate 45; Glucose Random 134 mg/dL (60-115); Magnesium 2.2 mg/dL (1.6-2.6); Potassium 2.6 mmol/L (3.3-5.1); Sodium 134 mmol/L (135-145); Total Protein 7.3 g/dL (6.5-8.0)
[2023-08-18 11:29] LABS: Troponin-I High Sensitivity 17.7 ng/L (<3.5-17.0)
[2023-08-18 11:36] LABS: Bacteria Urine 3+ (None Seen); Hyaline Casts Urine 0-2 /LPF (0-2); UACC Culture Trigger YES; WBC Urine >50 /HPF (0-5)
[2023-08-18] MEDS: Potassium Chloride/H20 10 MEQ/100 ML PIGGYBACK 100 MEQ IV ×2 (12:17→13:38)
[2023-08-18] MEDS: Potassium Chloride Packet 20 MEQ PACKET 40 MEQ PO (12:17)
[2023-08-18] MEDS: 0.9 % Sodium Chloride 1,000 ML 999 ML IV (12:19)
--- NOTE | 2023-08-18 12:24 | PM.IMHP ---
History of Present Illness Date of Service: 08/18/23 Chief Complaint: weakness, dizzyness 88F PMH Alzheimer's dementia, mild intermittent asthma, lymphedema, hypertension, hypothyroid presented with weakness and dizziness. History taken from patient's daughter as patient has advanced dementia. Family reports about 1 week of multiple episodes of blank staring after being standing for several moments with increased weakness, improved while sitting and lying down. Increasing confusion. Of note, patient's furosemide 40 mg daily was increased to 60 mg daily at the end of July. in ED noted to be hypokalemic, orthostatic. Review of Systems Review of Systems: Yes all other systems are reviewed and are negative [facility] Medical History Bilateral post-traumatic osteoarthritis of knee Lymphedema of both lower extremities Fluid retention Cataract HTN (hypertension) Family History Other HTN (hypertension) Surgical History Status post ablation of incompetent vein using laser History of bladder surgery History of hip surgery Social History Household Members: Children Housing: House Alcohol intake: never Smoked in Last 30 Days: No Use of substances other than those prescribed or required for medical reasons: No Advance Directives: No Advance Directives Information Provided: Yes Advance Directives Date on File: 09/23/20 Do you have a plan to hurt others: No Plan service: No Current occupational status: retired Current occupation: Right Handed Meds Allergies Allergy/AdvReac Type Severity Reaction Status Date / Time Penicillins [PENICILLINS] Allergy Intermediate Rash Verified 08/18/23 09:21 Sulfa (Sulfonamide Allergy Intermediate Rash Verified 08/18/23 09:21 Antibiotics) [SULFA (SULFONAMIDE ANTIBIOTICS)] tetanus and diphtheria Allergy Intermediate Redness of Verified 08/18/23 09:21 toxoids Skin [TETANUS AND DIPHTHERIA TOXOIDS] codeine [CODEINE] Allergy Unknown Rash Verified 08/18/23 09:21 Active Medications: Current Medications Potassium Chloride (Potassium Chloride/H20) 10 meq in 100 mls @ 100 mls/hr IV Q1H SIENNA Stop: 08/18/23 13:29 Last Admin: 08/18/23 12:17 Dose: 100 mls/hr Sodium Chloride (Ns) 1,000 mls @ 999 mls/hr IV .Q1H1M SIENNA Stop: 08/18/23 12:45 Last Admin: 08/18/23 12:19 Dose: 999 mls/hr Home Medications ?Medication ?Instructions ?Recorded ?Confirmed ?Last Taken ?Type donepezil 10 mg tablet 10 mg PO BEDTIME 09/23/20 09/23/20 09/22/20 History levothyroxine 25 mcg tablet 25 mcg PO DAILY@0600 09/23/20 09/23/20 09/22/20 History melatonin 3 mg tablet 6 mg PO BEDTIME 09/23/20 09/23/20 09/22/20 History memantine 5 mg tablet 5 mg PO BID 09/23/20 09/23/20 09/22/20 History potassium chloride 10 mEq 20 meq PO BID 09/23/20 09/23/20 09/22/20 History tablet,extended release triamterene 37.5 1.5 tab PO DAILY 09/23/20 09/23/20 09/22/20 History mg-hydrochlorothiazide 25 mg tablet vitamin B12 1,000 mcg-folic acid 1 tab sublingual 09/23/20 09/22/20 History 400 mcg sublingual tablet furosemide 40 mg tablet mg PO 12/15/22 Unknown History Physical Exam Vital Signs and Narrative: Vital Signs: Last Vital Signs Temp 96.9 F 08/18/23 09:18 Pulse 96 08/18/23 11:39 Resp 16 08/18/23 09:50 BP 91/63 08/18/23 11:39 Pulse Ox 93 08/18/23 09:50 O2 Del Method Room Air 08/18/23 09:50 BMI result Body Mass Index 23.9 General: AO X 1, no acute distress, elderly, frail appearing Resp: CTA bilateral, no accessory muscles used CVS: S1,S2,RRR GI: soft, non tender, non distended Neuro: motor grossly intact, alert Results Labs 08/18/23 10:36 08/18/23 10:36 Labs: Laboratory Results - last 24 hr 08/18/23 08/18/23 10:36 11:13 MCV 90.3 MCH 31.3 MCHC 34.7 RDW 12.1 Plt Count 296 MPV 9.2 L Immature Gran % (Auto) 0.3 Neut % (Auto) 79.2 H Lymph % (Auto) 12.3 L [place] % (Auto) 7.2 Eos % (Auto) 0.5 Baso % (Auto) 0.5 Lymph # (Auto) 1.1 L [place] # (Auto) 0.6 Eos # (Auto) 0.0 Baso # (Auto) 0.0 Abs Immat Gran (auto) 0.03 Absolute Neuts (auto) 6.9 Absolute Nucleated RBC 0.000 Nucleated RBC % (auto) 0.0 Anion Gap 15 Estim Creat Clear Calc 26.9 Estimated GFR 45 Random Glucose 134 H Calcium 9.6 D Magnesium 2.2 Total Bilirubin 0.7 AST 18 ALT 17 Alkaline Phosphatase 111 Troponin I High Sens 17.7 H Total Protein 7.3 Albumin 3.9 Urine Color Yellow Urine Appearance Cloudy Urine pH 6.5 Ur Specific [place] 1.010 Urine Protein Negative Urine Glucose (UA) Negative Urine Ketones Negative Urine Blood Negative Urine Nitrite Negative Ur Leukocyte Esterase Large (3+) H Urine RBC 3-5 H Urine WBC >50 H Ur Squamous Epith Cells 3-5 Urine Bacteria 3+ Hyaline Casts 0-2 Influenza Type A (PCR) NEGATIVE Influenza Type B (PCR) NEGATIVE RSV RNA Qual (PCR) NEGATIVE SARS-CoV-2 RNA (RT-PCR) NEGATIVE Imaging Radiologist's Impressions: Impressions Chest X-Ray 08/18/23 10:00 IMPRESSION: No acute cardiopulmonary findings. Assessment and Plan (1) Acute hypokalemia: Status: Acute Plan 88F PMH Alzheimer's dementia, mild intermittent asthma, lymphedema, hypertension, hypothyroid presented with weakness and dizziness, found to be hypokalemic and orthostatic Orthostatic hypotension with supine hypertension Due to increase in Lasix dose Hold Lasix and other antihypertensives Normal saline Monitor orthostatics PT eval Acute hypokalemia Due to Lasix Replace and monitor UTI Ceftriaxone, follow-up cultures Alzheimer's dementia Continue Aricept, memantine Hypothyroid Continue Synthroid Mild intermittent asthma Stable DVT prophylaxis with Lovenox DNR/DNI Patient with significant fluid deficit resulting in orthostatic hypotension and requiring IV hydration, therefore, expected require at least 2 midnights inpatient Quality Stroke Does the patient have a stroke diagnosis?: No VTE Prior VTE?: No VTE Risk Level:: Medical - moderate - high VTE Device Contraindication: Treatment Not Indicated VTE Drug Contraindication: N/A - Med Ordered
--- NOTE | 2023-08-18 12:47 | PHA.MEDREC ---
Pharmacy Consult ? Medication Reconciliation Pharmacy has completed the medication reconciliation. spoke with patients family member at bedside who had medication bottles with her. She reports that the patient did not have any medications today.
[2023-08-18] MEDS: 0.9 % Sodium Chloride 1,000 ML 80 ML IVCONT (15:05)
[2023-08-18] MEDS: cefTRIAXone sodium 1 GM in 0.9 % Sodium Chloride 50 ML IV (15:06)
[2023-08-18] MEDS: Donepezil HCl 10 MG TABLET PO (22:21)
[2023-08-18] MEDS: Memantine HCl 5 MG TABLET PO (22:21)
[2023-08-18] MEDS: Melatonin 3 MG TABLET PO (22:21)
[2023-08-18] MEDS: Acetaminophen 325 MG TABLET 650 MG PO (22:21)
[2023-08-19] VITALS (9 sets, daily range): BP systolic 80–159; BP diastolic 51–68; PULSE 59–106; RESP 16–18; TEMP 36.2–37.1; O2SAT 93–96
[2023-08-19] MEDS: 0.9 % Sodium Chloride Flush 3 ML SYRINGE IVFLUSH ×2 (02:51→08:44)
[2023-08-19] MEDS: 0.9 % Sodium Chloride 1,000 ML 80 ML IVCONT ×2 (02:52→19:58)
[2023-08-19] MEDS: Levothyroxine Sodium 25 MCG TABLET PO (06:42)
[2023-08-19 06:44] LABS: Hematocrit 36.7 % (37.0-47.0); Hemoglobin 12.5 g/dl (12.0-16.0); Mean Corpuscular HGB Conc 34.1 g/dl (31.0-35.0); Mean Corpuscular Hemoglobin 31.2 pg (27.0-33.0); Mean Corpuscular Volume 91.5 fL (80.0-98.0); Mean Platelet Volume 9.9 fL (9.4-12.3); Platelet Count 309 X10*3/uL (160-400); Red Blood Count 4.01 X10*6/uL (4.20-5.50); Red Cell Distribution Width 12.5 % (11.0-16.0); White Blood Count 8.1 X10*3/uL (4.8-10.8)
[2023-08-19 06:57] LABS: Anion Gap 15 (12-20); Blood Urea Nitrogen 10 mg/dL (9-16); Calcium 8.9 mg/dL (8.4-10.2); Carbon Dioxide 27 mmol/L (22-29); Chloride 100 mmol/L (96-108); Creatinine Clr Calc Pharmacy 37.5; Estimated Glomerular Filt Rate > 60; Glucose Fasting 121 mg/dL (60-99); Magnesium 2.1 mg/dL (1.6-2.6); Potassium 2.7 mmol/L (3.3-5.1); Sodium 139 mmol/L (135-145)
[2023-08-19] MEDS: Potassium Chloride/H20 10 MEQ/100 ML PIGGYBACK 100 MEQ IV ×4 (07:25→12:20)
[2023-08-19] MEDS: Potassium Chloride ER 20 MEQ TAB.ER.PRT 40 MEQ PO (07:26)
--- NOTE | 2023-08-19 08:17 | HO.PM.IMPN ---
Subjective Subjective Date of Service: 08/19/23 Interval History: no complaints Physical Exam Vital Signs: Vital Signs: Last Vital Signs Temp 97.1 F 08/19/23 03:52 Pulse 59 08/19/23 03:52 Resp 18 08/19/23 03:52 BP 139/65 08/19/23 03:52 Pulse Ox 96 08/19/23 03:52 O2 Del Method Room Air 08/19/23 03:52 BMI result Body Mass Index 24.2 pleasantly confused, oriented to self only, can answer simple questions lungs clear Objective Data Active Medications Acetaminophen (Acetaminophen 325 Mg Tablet) 650 mg PO Q6H PRN PRN Reason: Pain, Mild (Pain Scale 1-3) Last Admin: 08/18/23 22:21 Dose: 650 mg Documented By: BRII Donepezil HCl (Donepezil Hcl 10 Mg Tablet) 10 mg PO BEDTIME [facility] Last Admin: 08/18/23 22:21 Dose: 10 mg Documented By: BRII Enoxaparin Sodium (Enoxaparin Sodium 30 Mg/0.3 Ml Syringe) 30 mg SUBCUT Q24H [facility] Sodium Chloride (Ns) 1,000 mls @ 80 mls/hr IVCONT .[id number] [facility] Last Admin: 08/19/23 02:52 Dose: 80 mls/hr Documented By: BRII Ceftriaxone Sodium 1 gm/ (Sodium Chloride) 50 mls @ 100 mls/hr IV DAILY [facility] Potassium Chloride (Potassium Chloride/H20) 10 meq in 100 mls @ 100 mls/hr IV Q1H [facility] Stop: 08/19/23 10:59 Last Admin: 08/19/23 07:25 Dose: 100 mls/hr Documented By: JESSICA Levothyroxine Sodium (Levothyroxine Sodium 25 Mcg Tablet) 25 mcg PO DAILY@0600 [facility] Last Admin: 08/19/23 06:42 Dose: 25 mcg Documented By: BRII Melatonin (Melatonin 3 Mg Tablet) 3 mg PO BEDTIME PRN PRN Reason: Insomnia Last Admin: 08/18/23 22:21 Dose: 3 mg Documented By: BRII Memantine (Memantine Hcl 5 Mg Tablet) 5 mg PO BID [facility] Last Admin: 08/18/23 22:21 Dose: 5 mg Documented By: BRII Sodium Chloride (0.9 % Sodium Chloride Flush 3 Ml Syringe) 3 ml IVFLUSH QSHIFT [facility] Last Admin: 08/19/23 02:51 Dose: 3 ml Documented By: BRII Vitamin D (Cholecalciferol (Vitamin D3) 25 Mcg Tablet) 25 mcg PO DAILY [facility] Labs 08/19/23 05:22 08/19/23 05:22 Labs: Laboratory Results - last 24 hr 08/18/23 08/18/23 08/19/23 10:36 11:13 05:22 MCV 90.3 91.5 MCH 31.3 31.2 MCHC 34.7 34.1 RDW 12.1 12.5 Plt Count 296 309 MPV 9.2 L 9.9 Immature Gran % (Auto) 0.3 Neut % (Auto) 79.2 H Lymph % (Auto) 12.3 L [place] % (Auto) 7.2 Eos % (Auto) 0.5 Baso % (Auto) 0.5 Lymph # (Auto) 1.1 L [place] # (Auto) 0.6 Eos # (Auto) 0.0 Baso # (Auto) 0.0 Abs Immat Gran (auto) 0.03 Absolute Neuts (auto) 6.9 Absolute Nucleated RBC 0.000 0.000 Nucleated RBC % (auto) 0.0 0.0 Anion Gap 15 15 Estim Creat Clear Calc 26.9 37.5 Estimated GFR 45 > 60 Random Glucose 134 H Fasting Glucose 121 H Calcium 9.6 D 8.9 D Magnesium 2.2 2.1 Total Bilirubin 0.7 AST 18 ALT 17 Alkaline Phosphatase 111 Troponin I High Sens 17.7 H Total Protein 7.3 Albumin 3.9 Urine Color Yellow Urine Appearance Cloudy Urine pH 6.5 Ur Specific [place] 1.010 Urine Protein Negative Urine Glucose (UA) Negative Urine Ketones Negative Urine Blood Negative Urine Nitrite Negative Ur Leukocyte Esterase Large (3+) H Urine RBC 3-5 H Urine WBC >50 H Ur Squamous Epith Cells 3-5 Urine Bacteria 3+ Hyaline Casts 0-2 Influenza Type A (PCR) NEGATIVE Influenza Type B (PCR) NEGATIVE RSV RNA Qual (PCR) NEGATIVE SARS-CoV-2 RNA (RT-PCR) NEGATIVE Assessment and Plan (1) Acute hypokalemia: Status: Acute (2) MEAGHAN (acute kidney injury): Status: Acute (3) UTI (urinary tract infection): Status: Acute Plan 88F PMH Alzheimer's dementia, mild intermittent asthma, lymphedema, hypertension, hypothyroid presented with weakness and dizziness, found to be hypokalemic and orthostatic Orthostatic hypotension with supine hypertension Holding Lasix and antihypertensives Normal saline Monitor orthostatics PT eval Acute hypokalemia Replace and monitor UTI Ceftriaxone, follow-up cultures Alzheimer's dementia Continue Aricept, memantine Hypothyroid Continue Synthroid Mild intermittent asthma Stable DVT prophylaxis with Lovenox DNR/DNI reason for continued hospitalization:ongoing potassium supplementation, ivf Quality Stroke Does the patient have a stroke diagnosis?: No VTE Prior VTE?: No VTE Risk Level:: Medical - moderate - high VTE Device Contraindication: Treatment Not Indicated VTE Drug Contraindication: N/A - Med Ordered
[2023-08-19] MEDS: Enoxaparin Sodium 30 MG/0.3 ML SYRINGE SUBCUT (08:41)
[2023-08-19] MEDS: Cholecalciferol (Vitamin D3) 25 MCG TABLET PO (08:41)
[2023-08-19] MEDS: cefTRIAXone sodium 1 GM in 0.9 % Sodium Chloride 50 ML IV (08:42)
[2023-08-19] MEDS: Memantine HCl 5 MG TABLET PO ×2 (08:42→19:59)
--- NOTE | 2023-08-19 14:29 | MHC.CM.PN ---
Addendum entered by Cara Lew 08/19/23 14:33: CORRECTION: PTS DAUGHTERS NAME IS BRANDIN Original Note: CM MET WITH PTS FAMILY, INCLUDING HER DAUGHTER/HCP, DANA AT BEDSIDE PT LIVES WITH DANA WHO PROVIDES 24 CARE TO THE PT PT USES A ROLLATOR FOR DME PCP: GIL STARK COPY OF HCP OBTAINED AND NOW ON FILE IMM DELIVERED THERE IS A PT EVAL PENDING, PER FAMILY, THE GOAL WOULD BE STR AT [facility] VS [facility] REFERRALS SENT IF PT DOES NOT QUALIFY FOR STR, SHE WILL RETURN HOME WITH RESUMPTION OF 24/7 FAMILY CARE TRANSPORT TBD BY DISPOSITION
[2023-08-19] MEDS: Donepezil HCl 10 MG TABLET PO (19:59)
[2023-08-20] VITALS (9 sets, daily range): BP systolic 125–139; BP diastolic 61–80; PULSE 57–82; RESP 16–19; TEMP 36.2–37.1; O2SAT 94–97
--- NOTE | 2023-08-20 | EEG_ITS ---
FINDINGS: Waking background activity consists of low-voltage fast frequencies seen anteriorly intermixed posteriorly with a low voltage 5 to 6 hertz theta. Photic stimulation is without activation. Hyperventilation was omitted. No paroxysmal discharges are seen. IMPRESSION: This EEG is considered abnormal due to diffuse background slowing consistent with a diffuse encephalopathic process. No epileptiform discharges are seen. MD ALTHEA Torres/ALEKSANDRA / [phone]
[2023-08-20] MEDS: Levothyroxine Sodium 25 MCG TABLET PO (06:17)
[2023-08-20 06:21] LABS: Hematocrit 34.7 % (37.0-47.0); Hemoglobin 11.4 g/dl (12.0-16.0); Mean Corpuscular HGB Conc 32.9 g/dl (31.0-35.0); Mean Corpuscular Hemoglobin 30.5 pg (27.0-33.0); Mean Corpuscular Volume 92.8 fL (80.0-98.0); Mean Platelet Volume 9.6 fL (9.4-12.3); Platelet Count 274 X10*3/uL (160-400); Red Blood Count 3.74 X10*6/uL (4.20-5.50); Red Cell Distribution Width 12.9 % (11.0-16.0); White Blood Count 7.3 X10*3/uL (4.8-10.8)
[2023-08-20 06:27] LABS: Anion Gap 14 (12-20); Blood Urea Nitrogen 12 mg/dL (9-16); Calcium 8.7 mg/dL (8.4-10.2); Carbon Dioxide 25 mmol/L (22-29); Chloride 104 mmol/L (96-108); Creatinine Clr Calc Pharmacy 38.4; Estimated Glomerular Filt Rate > 60; Glucose Fasting 113 mg/dL (60-99); Potassium 3.4 mmol/L (3.3-5.1); Sodium 140 mmol/L (135-145)
[2023-08-20] MEDS: Potassium Chloride ER 20 MEQ TAB.ER.PRT 40 MEQ PO (09:04)
[2023-08-20] MEDS: Cholecalciferol (Vitamin D3) 25 MCG TABLET PO (09:05)
[2023-08-20] MEDS: Memantine HCl 5 MG TABLET PO ×2 (09:05→21:54)
[2023-08-20] MEDS: cefTRIAXone sodium 1 GM in 0.9 % Sodium Chloride 50 ML IV (09:05)
[2023-08-20] MEDS: Enoxaparin Sodium 40 MG/0.4 ML SYRINGE SUBCUT (09:05)
--- NOTE | 2023-08-20 10:33 | P.PNIM_ITS ---
Subjective Subjective Date of Service: 08/20/23 Interval History: had another staring episdoe today Physical Exam 2 Vital Signs: Vital Signs: Last Vital Signs Temp 97.2 F 08/20/23 08:00 Pulse 64 08/20/23 09:48 Resp 18 08/20/23 08:00 BP 137/80 08/20/23 09:48 Pulse Ox 94 08/20/23 09:48 O2 Del Method Room Air 08/20/23 08:00 BMI result Body Mass Index 24.2 pleasantly confused, oriented to self only, can answer simple questions lungs clear Objective Data Active Medications Acetaminophen (Acetaminophen 325 Mg Tablet) 650 mg PO Q6H PRN PRN Reason: Pain, Mild (Pain Scale 1-3) Last Admin: 08/18/23 22:21 Dose: 650 mg Documented By: BRII Donepezil HCl (Donepezil Hcl 10 Mg Tablet) 10 mg PO BEDTIME [facility] Last Admin: 08/19/23 19:59 Dose: 10 mg Documented By: BRI Enoxaparin Sodium (Enoxaparin Sodium 40 Mg/0.4 Ml Syringe) 40 mg SUBCUT Q24H [facility] Last Admin: 08/20/23 09:05 Dose: 40 mg Documented By: SHAWANDA Sodium Chloride (Ns) 1,000 mls @ 80 mls/hr IVCONT .[id number] [facility] Last Infusion: 08/20/23 05:15 Dose: 80 mls/hr Documented By: BRI Ceftriaxone Sodium 1 gm/ (Sodium Chloride) 50 mls @ 100 mls/hr IV DAILY [facility] Last Infusion: 08/20/23 09:50 Dose: Infused Documented By: SHAWANDA Levothyroxine Sodium (Levothyroxine Sodium 25 Mcg Tablet) 25 mcg PO DAILY@0600 [facility] Last Admin: 08/20/23 06:17 Dose: 25 mcg Documented By: BRI Melatonin (Melatonin 3 Mg Tablet) 3 mg PO BEDTIME PRN PRN Reason: Insomnia Last Admin: 08/18/23 22:21 Dose: 3 mg Documented By: BRII Memantine (Memantine Hcl 5 Mg Tablet) 5 mg PO BID [facility] Last Admin: 08/20/23 09:05 Dose: 5 mg Documented By: SHAWANDA Sodium Chloride (0.9 % Sodium Chloride Flush 3 Ml Syringe) 3 ml IVFLUSH QSHIFT [facility] Last Admin: 08/20/23 09:04 Dose: Not Given Documented By: SHAWANDA Non-Admin Reason: IV Running Vitamin D (Cholecalciferol (Vitamin D3) 25 Mcg Tablet) 25 mcg PO DAILY [facility] Last Admin: 08/20/23 09:05 Dose: 25 mcg Documented By: SHAWANDA Labs 08/20/23 05:56 08/20/23 05:56 Labs: Laboratory Results - last 24 hr 08/20/23 05:56 MCV 92.8 MCH 30.5 MCHC 32.9 RDW 12.9 Plt Count 274 MPV 9.6 Absolute Nucleated RBC 0.000 Nucleated RBC % (auto) 0.0 Anion Gap 14 Estim Creat Clear Calc 38.4 Estimated GFR > 60 Fasting Glucose 113 H Calcium 8.7 Microbiology Microbiology Results: Microbiology 08/18/23 12:58 Blood Culture - Preliminary Blood - Venous No growth after 24 hours. 08/18/23 12:47 Blood Culture - Preliminary Blood - Venous No growth after 24 hours. 08/18/23 Unknown Urine Culture - Preliminary Urine Catheterized - Straight Catheter Culture in progress. Assessment and Plan (1) Acute hypokalemia: Status: Acute (2) MEAGHAN (acute kidney injury): Status: Acute (3) UTI (urinary tract infection): Status: Acute Plan 88F PMH Alzheimer's dementia, mild intermittent asthma, lymphedema, hypertension, hypothyroid presented with weakness and dizziness, found to be hypokalemic and orthostatic Orthostatic hypotension with supine hypertension Holding Lasix and antihypertensives Normal saline orthostatic improved PT eval -STR staring episodes ?seizures neuro eval, eeg Acute hypokalemia Replace and monitor, improving UTI Ceftriaxone, follow-up cultures Alzheimer's dementia Continue Aricept, memantine Hypothyroid Continue Synthroid Mild intermittent asthma Stable DVT prophylaxis with Lovenox DNR/DNI reason for continued hospitalization:ongoing potassium supplementation, iv, eeg pendingf Quality Stroke Does the patient have a stroke diagnosis?: No VTE Prior VTE?: No VTE Risk Level:: Medical - moderate - high VTE Device Contraindication: Treatment Not Indicated VTE Drug Contraindication: N/A - Med Ordered
--- NOTE | 2023-08-20 10:46 | MHC.CM.PN ---
Per ROUNDS discussion, Patient is not yet medically cleared for dc (pending EEG/another staring episode); PT is recommending STR and CM will continue to follow.
--- NOTE | 2023-08-20 10:48 | PM.NEUROCN ---
History of Present Illness Data of Consult Service Date: 08/20/23 Primary Care Provider: MD WILBERTO Perla Reason for consult: STARING EPISODES 88 YEARS OLD WOMAN WHO PROBABLY HAS UNDERLYING DEMENTIA WAS NOTED TO HAVE EPISODES OF STARING AND CONFUSION AT HOME AND WAS BROUGHT TO HOSPITAL. WHILE IN HOSPITAL AND SITTING IN CHAIR SHE HAD ANOTHER EPISODE. INITIALLY IT WAS THOUGHT THAT THESE EPISODES WERE CAUSE BY LOW BLOOD PRESSURE OR ORTHOSTASIS BUT THE LAST 1 HAPPENED WHEN SHE WAS SITTING COMFORTABLY. DAUGHTER WAS ON HER BEDSIDE REPORTING THAT ALL THESE EPISODES HAVE OCCURRED SUDDENLY AND SUDDENLY SHE IS STARTED TO STARE HER I CHANGED AND SHE BECAME CONFUSED AND LETHARGIC. EACH EPISODE LASTED FOR FEW MINUTES. SHE WAS PREVIOUS OF THESE EPISODES. Review of Systems Review of Systems: [facility] Past Medical History Medical History Bilateral post-traumatic osteoarthritis of knee Lymphedema of both lower extremities Fluid retention Cataract HTN (hypertension) Family History Family History Other HTN (hypertension) Surgical History Surgical History Status post ablation of incompetent vein using laser History of bladder surgery History of hip surgery Social History Social History Household Members: Family Housing: Apartment Do you presently have visiting nurse or other home services: No Alcohol intake: never Comment: sitter in room Patient Tobacco Use Status: Never used Tobacco Advance Directives Date on File: 09/23/20 service: No Current occupational status: retired Current occupation: Right Handed Meds Allergies Allergy/AdvReac Type Severity Reaction Status Date / Time Penicillins [PENICILLINS] Allergy Intermediate Rash Verified 08/18/23 09:21 Sulfa (Sulfonamide Allergy Intermediate Rash Verified 08/18/23 09:21 Antibiotics) [SULFA (SULFONAMIDE ANTIBIOTICS)] tetanus and diphtheria Allergy Intermediate Redness of Verified 08/18/23 09:21 toxoids Skin [TETANUS AND DIPHTHERIA TOXOIDS] codeine [CODEINE] Allergy Unknown Rash Verified 08/18/23 09:21 Active Medications: Current Medications Acetaminophen (Acetaminophen 325 Mg Tablet) 650 mg PO Q6H PRN PRN Reason: Pain, Mild (Pain Scale 1-3) Last Admin: 08/18/23 22:21 Dose: 650 mg Donepezil HCl (Donepezil Hcl 10 Mg Tablet) 10 mg PO BEDTIME [facility] Last Admin: 08/19/23 19:59 Dose: 10 mg Enoxaparin Sodium (Enoxaparin Sodium 40 Mg/0.4 Ml Syringe) 40 mg SUBCUT Q24H [facility] Last Admin: 08/20/23 09:05 Dose: 40 mg Sodium Chloride (Ns) 1,000 mls @ 80 mls/hr IVCONT .[id number] [facility] Last Infusion: 08/20/23 05:15 Dose: 80 mls/hr Ceftriaxone Sodium 1 gm/ (Sodium Chloride) 50 mls @ 100 mls/hr IV DAILY [facility] Last Infusion: 08/20/23 09:50 Dose: Infused Levothyroxine Sodium (Levothyroxine Sodium 25 Mcg Tablet) 25 mcg PO DAILY@0600 [facility] Last Admin: 08/20/23 06:17 Dose: 25 mcg Melatonin (Melatonin 3 Mg Tablet) 3 mg PO BEDTIME PRN PRN Reason: Insomnia Last Admin: 08/18/23 22:21 Dose: 3 mg Memantine (Memantine Hcl 5 Mg Tablet) 5 mg PO BID [facility] Last Admin: 08/20/23 09:05 Dose: 5 mg Sodium Chloride (0.9 % Sodium Chloride Flush 3 Ml Syringe) 3 ml IVFLUSH QSHIFT [facility] Last Admin: 08/20/23 09:04 Dose: Not Given Vitamin D (Cholecalciferol (Vitamin D3) 25 Mcg Tablet) 25 mcg PO DAILY [facility] Last Admin: 08/20/23 09:05 Dose: 25 mcg Home Medications ?Medication ?Instructions ?Recorded ?Confirmed ?Last Taken ?Type donepezil 10 mg tablet 10 mg PO BEDTIME 09/23/20 08/18/23 09/22/20 History levothyroxine 25 mcg tablet 25 mcg PO DAILY@0600 09/23/20 08/18/23 09/22/20 History memantine 5 mg tablet 5 mg PO BID 09/23/20 08/18/23 09/22/20 History potassium chloride 10 mEq 20 meq PO BID 09/23/20 08/18/23 09/22/20 History tablet,extended release triamterene 37.5 1.5 tab PO QAM 09/23/20 08/18/23 09/22/20 History mg-hydrochlorothiazide 25 mg tablet furosemide 40 mg tablet 60 mg PO QAM 12/15/22 08/18/23 Unknown History ascorbic acid 1,000 1 ea PO DAILY 08/18/23 08/18/23 Unknown History [id number] powder effervescent pack (Emergen-C) cholecalciferol (vitamin D3) 25 25 mcg PO DAILY 08/18/23 08/18/23 Unknown History mcg (1,000 unit) tablet melatonin 5 mg tablet 5 mg PO BEDTIME 08/18/23 08/18/23 Unknown History Physical Exam Vital Signs: Vital Signs: Last Vital Signs Temp 97.2 F 08/20/23 08:00 Pulse 64 08/20/23 09:48 Resp 18 08/20/23 08:00 BP 137/80 08/20/23 09:48 Pulse Ox 94 08/20/23 09:48 O2 Del Method Room Air 08/20/23 08:00 BMI result Body Mass Index 24.2 Neuro: Other: SHE IS ALERT AND AWAKE LOOKING AROUND TOLD ME THAT HER DAUGHTER WAS SITTING NEXT TO HER AND SHE WAS FOLLOWING SIMPLE COMMANDS. FACE WAS SYMMETRICAL. VISUAL PRINGLE ARE FULL. THERE WAS NO OBVIOUS FOCAL WEAKNESS. DEEP TENDON REFLEXES WERE TRACE TO ABSENT. SPEECH WAS NORMAL. Results Labs 08/20/23 05:56 08/20/23 05:56 Labs: Short CBC 08/20/23 Range/Units 05:56 WBC 7.3 (4.8-10.8) X10*3/uL Hgb 11.4 L (12.0-16.0) g/dl Hct 34.7 L (37.0-47.0) % Plt Count 274 (160-400) X10*3/uL BMP 08/20/23 05:56 Sodium 140 Potassium 3.4 D Chloride 104 Carbon Dioxide 25 BUN 12 Creatinine 0.[address] REVEALED MODERATE TO SEVERE DIFFUSE CEREBRAL CENTRAL CORTICAL ATROPHY AND MICROVASCULAR ISCHEMIC DISEASE. Microbiology Microbiology Results: Microbiology 08/18/23 12:58 Blood - Venous Blood Culture - Preliminary No growth after 24 hours. 08/18/23 12:47 Blood - Venous Blood Culture - Preliminary No growth after 24 hours. 08/18/23 Unknown Urine Catheterized - Straight Catheter Urine Culture - Preliminary Culture in progress. Assessment and Plan (1) Complex partial seizure disorder: Status: Acute 88 YEARS OLD WOMAN WITH SIGNIFICANT DEGENERATIVE DEMENTIA WHO PROBABLY IS HAVING COMPLEX PARTIAL SEIZURES. MY RECOMMENDATION IS TO OBTAIN AN EEG TO SEE IF WE COULD CONFIRM THE DIAGNOSIS. OTHERWISE, AFTER EEG, MY RECOMMENDATION IS TO START HER ON LEVETIRACETAM 250 MG TWICE A DAY. Procedures Date of Service Date of Service: 08/20/23
--- NOTE | 2023-08-20 14:21 | MHC.CM.PN ---
Neither of the SNF preferences ([facility] nor [facility]) are offering a bed. CM has left a detailed message for Daughter/Maryann @ listed #, requesting additional SNF preferences. CM will follow.
--- NOTE | 2023-08-20 14:36 | MHC.CM.PN ---
CM received a return call from Maryann Romero and further SNF preferences were received. CM will follow.
--- NOTE | 2023-08-20 18:56 | PC.NURSE ---
Approximately 0830 shortly after being seen by PT while in recliner chair pts daughter reports that patient had starring episode not responding to verbal stimuli. By the time she had RN at bedside pt alert and speaking. BP 130/68 all other vitals stable no changes on tele. Dr Ramirez notified. Neuro consult ordered pt seen at bedside in am. EEG pending. Early afternoon daughter reports concerns of previous episodes, shared info with MRI ordered. Screening sent to MRI. Dr Ramirez notified late afternoon EEG planned for 08/20 at 1000 not time for MRI currently.
[2023-08-20] MEDS: Donepezil HCl 10 MG TABLET PO (21:54)
[2023-08-20] MEDS: 0.9 % Sodium Chloride Flush 3 ML SYRINGE IVFLUSH (21:54)
[2023-08-20] MEDS: levETIRAcetam 250 MG TABLET PO (21:54)
[2023-08-21] VITALS (9 sets, daily range): BP systolic 97–150; BP diastolic 57–75; PULSE 61–107; RESP 15–20; TEMP 36.2–36.8; O2SAT 93–97
[2023-08-21] MEDS: Levothyroxine Sodium 25 MCG TABLET PO (06:15)
[2023-08-21 06:29] LABS: Hematocrit 34.3 % (37.0-47.0); Hemoglobin 11.4 g/dl (12.0-16.0); Mean Corpuscular HGB Conc 33.2 g/dl (31.0-35.0); Mean Corpuscular Hemoglobin 31.2 pg (27.0-33.0); Mean Platelet Volume 9.8 fL (9.4-12.3); Platelet Count 274 X10*3/uL (160-400); Red Blood Count 3.65 X10*6/uL (4.20-5.50); Red Cell Distribution Width 13.1 % (11.0-16.0); White Blood Count 8.6 X10*3/uL (4.8-10.8)
[2023-08-21 06:30] LABS: Anion Gap 14 (12-20); Blood Urea Nitrogen 9 mg/dL (9-16); Carbon Dioxide 25 mmol/L (22-29); Chloride 106 mmol/L (96-108); Creatinine Clr Calc Pharmacy 39.9; Estimated Glomerular Filt Rate > 60; Glucose Fasting 110 mg/dL (60-99); Potassium 3.7 mmol/L (3.3-5.1); Sodium 141 mmol/L (135-145)
[2023-08-21] MEDS: cefTRIAXone sodium 1 GM in 0.9 % Sodium Chloride 50 ML IV (07:46)
[2023-08-21] MEDS: Enoxaparin Sodium 40 MG/0.4 ML SYRINGE SUBCUT (07:46)
[2023-08-21] MEDS: 0.9 % Sodium Chloride Flush 3 ML SYRINGE IVFLUSH ×3 (07:46→19:58)
[2023-08-21] MEDS: levETIRAcetam 250 MG TABLET PO ×2 (07:47→19:56)
[2023-08-21] MEDS: Cholecalciferol (Vitamin D3) 25 MCG TABLET PO (07:47)
[2023-08-21] MEDS: Memantine HCl 5 MG TABLET PO ×2 (07:47→19:56)
--- NOTE | 2023-08-21 10:26 | P.PNIM_ITS ---
Subjective Subjective Date of Service: 08/21/23 Interval History: no further episodes Physical Exam 2 Vital Signs: Vital Signs: Last Vital Signs Temp 98.2 F 08/21/23 07:26 Pulse 70 08/21/23 07:26 Resp 20 08/21/23 07:26 BP 97/57 L 08/21/23 07:26 Pulse Ox 93 08/21/23 07:26 O2 Del Method Room Air 08/21/23 07:26 BMI result Body Mass Index 24.2 Neuro: Other: SHE IS ALERT AND AWAKE LOOKING AROUND TOLD ME THAT HER DAUGHTER WAS SITTING NEXT TO HER AND SHE WAS FOLLOWING SIMPLE COMMANDS. FACE WAS SYMMETRICAL. VISUAL PRINGLE ARE FULL. THERE WAS NO OBVIOUS FOCAL WEAKNESS. DEEP TENDON REFLEXES WERE TRACE TO ABSENT. SPEECH WAS NORMAL. Objective Data Active Medications Acetaminophen (Acetaminophen 325 Mg Tablet) 650 mg PO Q6H PRN PRN Reason: Pain, Mild (Pain Scale 1-3) Last Admin: 08/18/23 22:21 Dose: 650 mg Documented By: BRII Donepezil HCl (Donepezil Hcl 10 Mg Tablet) 10 mg PO BEDTIME [facility] Last Admin: 08/20/23 21:54 Dose: 10 mg Documented By: BRI Enoxaparin Sodium (Enoxaparin Sodium 40 Mg/0.4 Ml Syringe) 40 mg SUBCUT Q24H [facility] Last Admin: 08/21/23 07:46 Dose: 40 mg Documented By: GEORGINA Ceftriaxone Sodium 1 gm/ (Sodium Chloride) 50 mls @ 100 mls/hr IV DAILY [facility] Last Infusion: 08/21/23 09:58 Dose: Infused Documented By: GEORGINA Levetiracetam (Levetiracetam 250 Mg Tablet) 250 mg PO BID [facility] Last Admin: 08/21/23 07:47 Dose: 250 mg Documented By: GEORGINA Levothyroxine Sodium (Levothyroxine Sodium 25 Mcg Tablet) 25 mcg PO DAILY@0600 [facility] Last Admin: 08/21/23 06:15 Dose: 25 mcg Documented By: SCOTT Melatonin (Melatonin 3 Mg Tablet) 3 mg PO BEDTIME PRN PRN Reason: Insomnia Last Admin: 08/18/23 22:21 Dose: 3 mg Documented By: BRII Memantine (Memantine Hcl 5 Mg Tablet) 5 mg PO BID [facility] Last Admin: 08/21/23 07:47 Dose: 5 mg Documented By: GEORGINA Sodium Chloride (0.9 % Sodium Chloride Flush 3 Ml Syringe) 3 ml IVFLUSH QSHIFT [facility] Last Admin: 08/21/23 07:46 Dose: 3 ml Documented By: GEORGINA Vitamin D (Cholecalciferol (Vitamin D3) 25 Mcg Tablet) 25 mcg PO DAILY [facility] Last Admin: 08/21/23 07:47 Dose: 25 mcg Documented By: GEORGINA Labs 08/21/23 05:59 08/21/23 05:59 Labs: Laboratory Results - last 24 hr 08/21/23 05:59 MCV 94.0 MCH 31.2 MCHC 33.2 RDW 13.1 Plt Count 274 MPV 9.8 Absolute Nucleated RBC 0.000 Nucleated RBC % (auto) 0.0 Anion Gap 14 Estim Creat Clear Calc 39.9 Estimated GFR > 60 Fasting Glucose 110 H Calcium 9.0 Microbiology Microbiology Results: Microbiology 08/18/23 12:58 Blood Culture - Preliminary Blood - Venous No growth after 48 hours. 08/18/23 12:47 Blood Culture - Preliminary Blood - Venous No growth after 48 hours. 08/18/23 Unknown Urine Culture - Preliminary Urine Catheterized - Straight Catheter Culture in progress. Assessment and Plan (1) Acute hypokalemia: Status: Acute (2) MEAGHAN (acute kidney injury): Status: Acute (3) UTI (urinary tract infection): Status: Acute Plan 88F PMH Alzheimer's dementia, mild intermittent asthma, lymphedema, hypertension, hypothyroid presented with weakness and dizziness, found to be hypokalemic and orthostatic Orthostatic hypotension with supine hypertension Holding Lasix and antihypertensives completed ivf orthostatic improved PT eval -STR staring episodes ?seizures neuro appreciated starte keppra 250mg bid follow up EEG Acute hypokalemia Replaced UTI Ceftriaxone, follow-up cultures Alzheimer's dementia Continue Aricept, memantine Hypothyroid Continue Synthroid Mild intermittent asthma Stable DVT prophylaxis with Lovenox DNR/DNI reason for continued hospitalization:follow up EEG, monitor for staring episodes, if no further episodes today would plan on discharge to [facility] tomorrow Quality Stroke Does the patient have a stroke diagnosis?: No VTE Prior VTE?: No VTE Risk Level:: Medical - moderate - high VTE Device Contraindication: Treatment Not Indicated VTE Drug Contraindication: N/A - Med Ordered
[2023-08-21] MEDS: Acetaminophen 325 MG TABLET 650 MG PO (19:55)
[2023-08-21] MEDS: Melatonin 3 MG TABLET PO (19:55)
[2023-08-21] MEDS: Donepezil HCl 10 MG TABLET PO (19:56)
[2023-08-22] VITALS (7 sets, daily range): BP systolic 119–138; BP diastolic 54–79; PULSE 53–88; RESP 16–20; TEMP 36.1–36.3; O2SAT 94–95
[2023-08-22] MEDS: Levothyroxine Sodium 25 MCG TABLET PO (06:23)
[2023-08-22] MEDS: Enoxaparin Sodium 40 MG/0.4 ML SYRINGE SUBCUT (08:58)
[2023-08-22] MEDS: levETIRAcetam 250 MG TABLET PO (08:58)
[2023-08-22] MEDS: Cholecalciferol (Vitamin D3) 25 MCG TABLET PO (08:58)
[2023-08-22] MEDS: cefTRIAXone sodium 1 GM in 0.9 % Sodium Chloride 50 ML IV (08:58)
[2023-08-22] MEDS: Memantine HCl 5 MG TABLET PO (08:58)
[2023-08-22] MEDS: 0.9 % Sodium Chloride Flush 3 ML SYRINGE IVFLUSH (08:59)
--- NOTE | 2023-08-22 11:28 | MHC.CM.PN ---
Per MD in ROUNDS, Patient is medically cleared for dc to SNF/STR today. Patient will dc to [facility] today at 2PM, via [facility]. IMM to be addressed with Family, who is aware of and pleased with the dc plan.
[2023-08-22] MEDS: Aspirin 81 MG TAB.CHEW PO (12:20)
--- NOTE | 2023-08-22 13:40 | P.DS_ITS ---
DS: Providers Provider Date of Service: 08/22/23 Date of admission: 08/18/23 12:22 Primary care physician: Sravanthi Davis MD Consults: 08/20/23 10:15 Consult to Neurology Routine Consulting Provider: [facility] Reason for consultation: staring spells DS: Diagnosis Discharge Diagnosis (1) Acute hypokalemia: Status: Acute (2) MEAGHAN (acute kidney injury): Status: Acute (3) UTI (urinary tract infection): Status: Acute (4) Complex partial seizure disorder: Status: Acute (5) Hypokalemia: Status: Acute DS: Summary Hospital Course Hospital Course: Admission note HPI 88F PMH Alzheimer's dementia, mild intermittent asthma, lymphedema, hypertension, hypothyroid presented with weakness and dizziness. History taken from patient's daughter as patient has advanced dementia. Family reports about 1 week of multiple episodes of blank staring after being standing for several moments with increased weakness, improved while sitting and lying down. Increasing confusion. Of note, patient's furosemide 40 mg daily was increased to 60 mg daily at the end of July. in ED noted to be hypokalemic, orthostatic. Hospital course Orthostatic hypotension with supine hypertension that corrected by holding Lasix and antihypertensives and using IV fluids with good response as orthostatic hypotension resolved and she was able to participate with PT who recommended short term rehab. Lasix decreased to 40 mg daily for now and she will monitor her daily weights and report any changes to PCP. Diagnosed with Partial complex seizures as she had multiple staring episodes that was evaluated by MRI showing Global cerebral volume loss and chronic microangiopathy. She was evaluated by Dr Montaño from neurology who recommended starting Keppra 250mg bid with fair response as an EEG showed generalized slowing and an abnormal test with no epileptical waves noted. Developed acute hypokalemia which was Replaced. Treated for UTI with Ceftriaxone,as urine culture grew sensitive E.Coli and Strep viridans. To finish 1 week of Antibiotics. to be discharged on Ceftin. Discharge plan Continue Ceftin for 3 more days Decrease Lasix to 40 mg daily Monitor weight daily Follow kidney function test in 1 week Aspirin 81 mg daily Atorvastatin 20 mg bedtime Increase physical activities as tolerated Time Attestation Discharge Coordination Time (in mins): 39 Quality: Safe Use of Opioids Does Pt have an Active Cancer Diagnosis on the Problem List?: No Quality: Stroke Does the patient have a stroke diagnosis?: No Physical Exam Vital Signs: Vital Signs: Last Vital Signs Temp 97.0 F 08/22/23 11:27 Pulse 76 08/22/23 11:27 Resp 20 08/22/23 11:27 BP 119/54 L 08/22/23 11:27 Pulse Ox 94 08/22/23 11:27 O2 Del Method Room Air 08/22/23 11:27 BMI result Body Mass Index 24.2 Const: Other: Constitutional : Awake, interactive, not in distress Neck : Normal inspection, Supple Cardiovascular : RRR, no JVP, no lower extremity edema Respiratory : good bilateral air entry, no wheezes or rhonchi Gastrointestinal: soft, lax, Normal bowel sounds, Non tender Skin : Warm, Dry Neurological : Alert & oriented to self, No focal deficit DS: Data Data Completed and Pending Labs on day of discharge: Preliminary micro results at discharge 08/18/23 12:58 Blood Culture - Preliminary Blood - Venous No growth after 48 hours. 08/18/23 12:47 Blood Culture - Preliminary Blood - Venous No growth after [address] scan - head: Radiologist's impression: ITS Impressions Chest X-Ray 08/18/23 10:00 IMPRESSION: No acute cardiopulmonary findings. Brain MRI 08/21/23 08:48 IMPRESSION: -No acute intracranial abnormality. 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 Discharge Plan Discharge Anticipated Discharge Date/Time: 08/22/23 13:12 Patient Disposition: er SNF Discharge Diagnosis: Urine infection partial complex seizures Referrals: [facility] [Outside] - 1 Week Sravanthi Davis MD [Primary Care Provider] - 1 Week Discharge Medications: New atorvastatin 20 mg Tablet 20 mg PO BEDTIME Qty: 90 0RF levetiracetam 250 mg Tablet 250 mg PO BID Qty: 60 0RF aspirin 81 mg Tablet,Chewable 81 mg PO DAILY Qty: 90 0RF cefuroxime axetil 250 mg tablet 250 mg PO BID Qty: 6 0RF Continued donepezil 10 mg Tablet 10 mg PO BEDTIME levothyroxine 25 mcg Tablet 25 mcg PO DAILY@0600 memantine 5 mg Tablet 5 mg PO BID potassium chloride 10 mEq Tablet Extended Release 20 meq PO BID triamterene-hydrochlorothiazid 37.5-25 mg Tablet 1.5 tab PO QAM cholecalciferol (vitamin D3) 25 mcg (1,000 unit) Tablet 25 mcg PO DAILY melatonin 5 mg Tablet 5 mg PO BEDTIME Emergen-C 1,000 mg Powder Effervescent In Packet 1 ea PO DAILY Changed furosemide 40 mg tablet 40 mg PO QAM Qty: 30 0RF Discharge Orders: Discharge Order (Routine); Ordered 08/22/23 Ordered By: Feliberto Gold Diet: Low fat, low cholesterol Activity on Discharge: As tolerated Stand Alone Forms: Patient Portal Discharge page Print Language: Spanish Care Plan Goals: Read below Health Concerns: Read below Plan of Treatment: Read below Assessment: Continue Ceftin for 3 more days Decrease Lasix to 40 mg daily Monitor weight daily Follow kidney function test in 1 week Aspirin 81 mg daily Atorvastatin 20 mg bedtime Increase physical activities as tolerated
--- NOTE | 2023-08-27 11:54 | P.CDIM_ITS ---
PROVIDER RESPONSE TEXT: To clarify, the appropriate diagnosis supported by the clinical indicators: Acute renal failure: suspected QUERY TEXT: PHYSICIAN'S DOCUMENTATION REQUEST Date of Query: 08/22/2023 11:36 AM EDT Patient Name: Marina Merino Admit Date: 08/18/2023 Dear Feliberto Gold, A review of the medical record indicates additional documentation may be needed. Please review below and update the documentation accordingly. Clinical Indicators: Progress notes 08/17 - 08/20 under Assessment and plan: MEAGHAN (acute kidney injury) Plan: Orthostatic hypotension Acute hypokalemia, replaced UTI, Ceftriaxone, follow-up cultures BUN 18 CR 1.14 GFR 45 >60 Clarity of a diagnosis only documented within the Assessment and Plan list: Acute renal failure suspected, possible, not treating MEAGHAN this admission Other (explain) Clinically unable to determine (explain) Thank you, Marge Hernandez, CCS, CDIS Use of terms such as suspected, likely, concern for, or probable (associated with a specific diagnosi s that is being evaluated, monitored, or treated as if it exists) are acceptable and can be coded in the inpatient se tting, when documented at the time of discharge. Please use your independent medical judgment in providing your response. THIS QUERY IS PART OF THE PERMANENT MEDICAL RECORD
== END 2023-08-22 14:44 | disposition skilled nursing facility (03) | DRG 101 ==
LOC: HO.ED 10:36 → HO.EDOVER 12:26 → HO.IMC 15:34
PROVIDERS: Nurse Practitioner Family; Admitting Provider Internal Medicine; Emergency Provider Student in an Organized Health Care Education/Training Program; PCP Internal Medicine; Visit Provider Student in an Organized Health Care Education/Training Program
DX: G40.209 Localization-related (focal) (partial) symptomatic epilepsy and epileptic syndromes with complex partial seizures, not intractable, without status epilepticus (principal); N39.0 Urinary tract infection, site not specified; N17.9 Acute kidney failure, unspecified; I95.1 Orthostatic hypotension; I10 Essential (primary) hypertension; B96.20 Unspecified Escherichia coli [E. coli] as the cause of diseases classified elsewhere; B95.4 Other streptococcus as the cause of diseases classified elsewhere; G30.9 Alzheimer's disease, unspecified; F02.80 Dementia in other diseases classified elsewhere, unspecified severity, without behavioral disturbance, psychotic disturbance, mood disturbance, and anxiety; Z66 Do not resuscitate; E03.9 Hypothyroidism, unspecified; J45.20 Mild intermittent asthma, uncomplicated; Z20.822 Contact with and (suspected) exposure to COVID-19; Z79.890 Hormone replacement therapy; Z79.899 Other long term (current) drug therapy
CPT/HCPCS: 0241U; 36415; 70551; 71046; 80048; 80053; 81001; 83735; 84484; 85025; 85027; 87040; 87086; 87088; 87186; 93005; 95816; 97116; 97161; 99285; J0696; J1650; J3480

== ENCOUNTER → 2023-08-18 09:44 | Outpatient (BNV) | payer MEDICARE, OTHER, SELFPAY | PROVIDERS: Admitting Provider Internal Medicine; Emergency Provider Student in an Organized Health Care Education/Training Program; PCP Internal Medicine; Visit Provider Internal Medicine Cardiovascular Disease | DX: R00.1 Bradycardia, unspecified (principal); I44.0 Atrioventricular block, first degree; R53.1 Weakness | CPT/HCPCS: 93010 ==

== ENCOUNTER → 2023-08-18 12:22 | Outpatient (BNV) | payer MEDICARE, OTHER, SELFPAY | PROVIDERS: Admitting Provider Internal Medicine; Emergency Provider Student in an Organized Health Care Education/Training Program; PCP Internal Medicine; Visit Provider Psychiatry & Neurology Neurology | DX: G40.209 Localization-related (focal) (partial) symptomatic epilepsy and epileptic syndromes with complex partial seizures, not intractable, without status epilepticus (principal) | CPT/HCPCS: 99222 ==

== ENCOUNTER → 2023-08-18 12:22 | Outpatient (BNV) | payer MEDICARE, OTHER, SELFPAY | PROVIDERS: Admitting Provider Internal Medicine; Emergency Provider Student in an Organized Health Care Education/Training Program; PCP Internal Medicine; Visit Provider Internal Medicine | DX: E87.6 Hypokalemia (principal); N17.9 Acute kidney failure, unspecified; N39.0 Urinary tract infection, site not specified; G40.209 Localization-related (focal) (partial) symptomatic epilepsy and epileptic syndromes with complex partial seizures, not intractable, without status epilepticus | CPT/HCPCS: 99222; 99232; 99239 ==